=== PATIENT | female | born 1965 | race Caucasian/White ===

== ENCOUNTER 2023-06-22 20:20 | Outpatient (REF) | payer BC, SELFPAY ==
[2023-06-27 15:08] LABS: Age Gdln ACOG Testing Note (.); HPV Aptima Negative (Negative); IGP, Aptima HPV, rfx 16/18,45 Note (.)
== END 2023-06-22 20:21 | disposition home or self-care (01) ==
LOC: LAB 20:20
PROVIDERS: PCP Internal Medicine; Visit Provider Obstetrics & Gynecology
DX: Z12.4 Encounter for screening for malignant neoplasm of cervix (principal)
CPT/HCPCS: 87624; G0145

== ENCOUNTER 2023-07-12 06:39 | Outpatient (OUT) | payer BC, SELFPAY ==
--- NOTE | 2023-07-12 06:41 | MM_ITS ---
Patient: ROWAN ALARCON Exam Date: 07/12/2023 : 1965 Gender:F Ordering : DR Raffaele Carter . Admission #: [id number] Family : DR Pa Brantley D.O. Order #: [id number] CLICK HERE TO VIEW EXAM RADIOLOGY REPORT PROCEDURE: MM TOMOSYNTHESIS SCREENING BI COMPARISON: MG MAMM SCREEN 3D LOWELL CAD, 12/29/2020. MG MAMM SCREEN 3D LOWELL CAD, 07/11/2022. INDICATIONS: Screening Calculator Name NCI Breast Cancer Risk Assessment Tool 5 Year Breast Cancer Risk 1.20% Lifetime Breast Cancer Risk 6.00% Personal Breast Cancer No Personal Ovarian Cancer No Treatments None Family Cancers Mother with colon cancer at age ~65. LOCATION: [facility] BREAST COMPOSITION: Heterogeneously dense,which may obscure small masses. FINDINGS: DIAGNOSTIC CATEGORY 2--BENIGN FINDING. NO CHANGE FROM COMPARISON. Scattered benign-appearing nodules are present. Scattered benign-appearing calcifications are present. Scattered benign-appearing lymph nodes are present. RIGHT BREAST: No significant suspicious finding. LEFT BREAST: No significant suspicious finding. RECOMMENDATIONS: ROUTINE MAMMOGRAM AND CLINICAL EVALUATION IN 12 MONTHS. PLEASE NOTE: A NORMAL MAMMOGRAM DOES NOT EXCLUDE THE POSSIBILITY OF BREAST CANCER. A CLINICALLY SUSPICIOUS PALPABLE LUMP SHOULD BE BIOPSIED. Dictated by: Pavan Harry MD on 07/12/2023 at 10:39 Approved by: Pavan Harry MD on 07/12/2023 at 10:41
== END 2023-07-12 06:40 | disposition home or self-care (01) ==
LOC: MAMMO 06:39
PROVIDERS: PCP Internal Medicine; Visit Provider Obstetrics & Gynecology
DX: Z12.31 Encounter for screening mammogram for malignant neoplasm of breast (principal); Z80.0 Family history of malignant neoplasm of digestive organs
CPT/HCPCS: 77063; 77067

== ENCOUNTER 2023-09-21 07:13 | Outpatient (OUT) | payer BC, SELFPAY ==
[2023-09-21 08:01] LABS: Estimated GFR (African America >60 (>=60); Estimated GFR (Non-African Ame >60 (>=60)
== END 2023-09-21 07:14 | disposition home or self-care (01) ==
LOC: LAB 07:13
PROVIDERS: Visit Provider Obstetrics & Gynecology
DX: Z78.0 Asymptomatic menopausal state (principal)
CPT/HCPCS: 82565; 84520

== ENCOUNTER 2024-03-21 10:27 | Outpatient (OUT) | payer BC, SELFPAY ==
--- NOTE | 2024-03-21 | XR_ITS ---
The [address] [address] Patient Name: ROWAN ALARCON MRN: [id number] date: 1965 Sex: F Assigned Patient Location: Current Patient Location: Accession/Order Number: [id number] Exam Date: 03/21/2024 10:40 Report Date: 03/22/2024 07:49 At the request of: ALEX DOLAN Procedure: XR foot LT min 3V PROCEDURE: XR foot LT min 3V, XR ankle LT min 3V COMPARISON: 01/17/2018 HISTORY: LEFT FOOT PAIN FINDINGS: BONES:No acute fracture or dislocation of the ankle or foot. Mild enthesopathic spurring of the calcaneus at the Achilles insertion. Minimal degenerative change SOFT TISSUES:Negative. No visible soft tissue swelling. EFFUSION:None visible. OTHER: Negative. XR/XR foot LT min 3V IMPRESSION: No acute abnormality of the foot or ankle Electronically authenticated by: DEVON RUANO Date: 03/22/2024 07:49
--- NOTE | 2024-03-21 | XR_ITS ---
The [address] [address] Patient Name: ROWAN ALARCON MRN: [id number] date: 1965 Sex: F Assigned Patient Location: Current Patient Location: Accession/Order Number: [id number] Exam Date: 03/21/2024 10:44 Report Date: 03/22/2024 07:49 At the request of: ALEX DOLAN Procedure: XR ankle LT min 3V PROCEDURE: XR foot LT min 3V, XR ankle LT min 3V COMPARISON: 01/17/2018 HISTORY: LEFT FOOT PAIN FINDINGS: BONES:No acute fracture or dislocation of the ankle or foot. Mild enthesopathic spurring of the calcaneus at the Achilles insertion. Minimal degenerative change SOFT TISSUES:Negative. No visible soft tissue swelling. EFFUSION:None visible. OTHER: Negative. XR/XR ankle LT min 3V IMPRESSION: No acute abnormality of the foot or ankle Electronically authenticated by: DEVON RUANO Date: 03/22/2024 07:49
== END 2024-03-21 10:28 | disposition home or self-care (01) ==
LOC: EC 10:27
PROVIDERS: Visit Provider Physician Assistant
DX: M79.672 Pain in left foot (principal); M25.572 Pain in left ankle and joints of left foot
CPT/HCPCS: 73610; 73630

== ENCOUNTER 2024-04-03 10:20 | Outpatient (RCR) | payer BC, SELFPAY | END 2024-05-02 17:12 | disposition home or self-care (01) | LOC: PT 10:20 | PROVIDERS: Visit Provider Physician Assistant | DX: S93.492D Sprain of other ligament of left ankle, subsequent encounter (principal) | CPT/HCPCS: 97010; 97014; 97035; 97110; 97112; 97140; 97162 ==

== ENCOUNTER 2024-06-18 06:41 | Outpatient (OUT) | payer BC, SELFPAY ==
--- OUTSIDE RECORDS SUMMARY | 2024-06-18 06:44 | XMS_ITS | CCD ---
Author Organization [facility] Care Team Providers Care Heel Former Name Role Phone PHYSICIAN, DEFAULT Unavailable Unavailable PHYSICIAN, DEFAULT Unavailable Unavailable FERCHO, PA Primary Care Physician Fercho, Pa Unavailable FERCHO, DR BOYD Attending Unavailable BALL, DR BOYD Consulting Unavailable FERCHO, DR BOYD Primary Care Unavailable FERCHO, DR BOYD Admitting Unavailable BINDU, DR DEVON John Consulting Unavailable FERCHO, DR BOYD Admitting Unavailable FERCHO, DR BOYD Attending Unavailable FERCHO, DR BOYD Primary Care Unavailable INOCENTE, JORDEN Admitting Unavailable INOCENTE, JORDEN Attending Unavailable INOCENTE, JORDEN Consulting Unavailable FERCHO, DR BOYD Primary Care Unavailable BALL, DR BOYD Primary Care Unavailable INOCENTE, JORDEN Attending Unavailable INOCENTE, JORDEN Consulting Unavailable INOCENTE, JORDEN Admitting Unavailable FERCHO, DR BOYD Attending Unavailable BALL, DR BOYD Consulting Unavailable FERCHO, DR BOYD Primary Care Unavailable FERCHO, DR BOYD Admitting Unavailable Allergies Allergy Classification Reported Allergen(s) Allergy Type Date of Onset Reaction(s) Facility (5 sources) Sulfamethoxazole / Trimethoprim; Translations: [sulfamethoxazole-tr imethoprim] Drug Allergy 5 Eruption of skin (disorder) General Surgery [place] (1 source) Sulfamethoxazole / Trimethoprim Drug Allergy 5 [facility] Medications Current Medications Medication Drug Class(es) Dates Sig (Normalized) Sig (Original) Acidophilus Probiotic Blend (1 source) Start: 01-05-2022 take 1 capsule by mouth once daily Acidophilus Probiotic Blend 1 cap(s), Oral, Daily, Refill(s) 0 Start Date: 01/05/22 Status: Ordered ALPRAZolam 0.25 mg oral tablet (5 sources) Benzodiazepine Start: 01-04-2023 take 1 tablet by mouth twice daily as needed ALPRAZolam 0.25 MG 1 tablet Orally Twice a day as needed for 30 days Dec, Active Start: 01-05-2022 take 1 tablet by danilo th every six hours as needed for anxiety alprazolam 0.25 mg Tab 0.25 mg = 1 tab(s), Oral, q6hr, PRN as needed for anxiety, Refills(s) 0 Start Date: 01/05/22 Status: Ordered take 1 tablet by danilo th every twelve hours ALPRAZolam 0.25 MG 1 tablet Orally Twice a day Active aspirin 81 mg oral tablet (1 source) Platelet Aggregation Inhibitor, Nonsteroidal Anti-inflammatory Drug Start: 01-05-2022 take 1 tablet by mouth once daily aspirin 81 mg Oral EC Tab 81 mg = 1 tab(s), Oral, Daily, Refills(s) 0 Start Date: 01/05/22 Status: Ordered estrogens, conjugated (residential) 0.625 mg/ml vaginal cream (4 sources) Estrogen Premarin 0.625 MG/GM as directed Vaginal Active predniSONE 20 mg oral tablet (1 source) Start: 07-26-2023 predniSONE 20 MG 1 tablet Orally tid w/ food x 3 days then bid w/ food x 3 days then qd w/ food x 3 days for 9 days Jul, Active Completed/Discontinued Medications Medication Drug Class(es) Dates Sig (Normalized) Sig (Original) amoxicillin 875 mg oral tablet (4 sources) Penicillin-class Antibacterial Start: 11-26-2022 take 1 tablet by mouth every twelve hours Amoxicillin 875 MG 1 tablet Orally Twice a day for 10 days Nov, Not-Taking Problems Active Problems Problem Classification Problem Date Documented Date Episodic/Chronic Abdominal pain (10 sources) Acute pain in female pelvis; Translations: [Pelvic and perineal pain] Episodic Allergic reactions (1 source) Allergic contact dermatitis due to plants, except food Episodic Anxiety disorders (7 sources) Generalized anxiety disorder; Translations: [Generalized anxiety disorder] 01-05-2022 Chronic Cardiac dysrhythmias (6 sources) Paroxysmal supraventricular tachycardia; Translations: [Supraventricular tachycardia] 01-05-2022 Chronic Cardiac dysrhythmias (5 sources) Palpitations; Translations: [Palpitations] Episodic Coagulation and hemorrhagic disorders (3 sources) Primary thrombocytopenia; Translations: [Primary thrombocytopenia, unspecified] Onset: 5 Chronic Conditions associated with dizziness or vertigo (2 sources) Benign paroxysmal positional vertigo; Translations: [Benign paroxysmal positional vertigo] Onset: 8 Episodic Genitourinary symptoms and ill-defined conditions (6 sources) Polyuria; Translations: [Polyuria] Episodic Headache; including migraine (1 source) Migraine with aura; Translations: [Migraine with aura, not intractable, without status migrainosus] Onset: 8 Chronic Joint disorders and dislocations; trauma-related (5 sources) Derangement of left knee; Translations: [Unspecified internal derangement of left knee] Chronic Nonspecific chest pain (6 sources) Chest pain; Translations: [Other chest pain] Onset: 5 Episodic Other and unspecified benign neoplasm (2 sources) History of polyp of colon; Translations: [Personal history of colonic polyps] Onset: 2 Episodic Other and unspecified benign neoplasm (5 sources) Polyp of colon; Translations: [Polyp of colon] Episodic Other bone disease and musculoskeletal deformities (5 sources) Osteopenia; Translations: [Other specified disorders of bone density and structure, other site] 01-05-2022 Episodic Other bone disease and musculoskeletal deformities (1 source) Other specified disorders of bone density and structure, other site Episodic Other bone disease and musculoskeletal deformities (1 source) Disorder of bone; Translations: [Other specified disorders of bone density and structure, other site] Episodic Other female genital disorders (1 source) Prolapse and hernia of ovary and fallopian tube; Translations: [Prolapse and hernia of ovary and fallopian tube] Episodic Other nutritional; endocrine; and metabolic disorders (1 source) Body mass index 25-29 - overweight 01-05-2022 Episodic Other screening for suspected conditions (not mental disorders or infectious disease) (11 sources) Electrocardiogram abnormal; Translations: [Abnormal electrocardiogram [ECG] [EKG]] Onset: 8 Episodic Other upper respiratory disease (5 sources) Chronic laryngitis; Translations: [Chronic laryngitis] Chronic Other upper respiratory infections (3 sources) Streptococcal pharyngitis; Translations: [Acute maxillary sinusitis] Episodic Residual codes; unclassified (1 source) Family history of malignant neoplasm of digestive organ; Translations: [Family history of malignant neoplasm of digestive organs] Onset: 2 Episodic Residual codes; unclassified (1 source) Family history of cancer of colon 01-05-2022 Episodic Residual codes; unclassified (1 source) Asymptomatic menopausal state Episodic Residual codes; unclassified (1 source) Postprocedural state finding; Translations: [Other specified postprocedural states] Episodic Spondylosis; intervertebral disc disorders; other back problems (2 sources) Lumbar spondylosis; Translations: [Lumbosacral spondylosis without myelopathy] 01-05-2022 Chronic Unclassified (1 source) History of clinical finding in subject 01-05-2022 Unclassified (2 sources) CONTACT W/AND (SUSP) EXPOS COVID-19; Translations: [CONTACT W/AND (SUSP) EXPOS COVID-19] Onset: 2 Unclassified (1 source) Exposure to acute respiratory syndrome coronavirus 2; Translations: [Contact with and (suspected) exposure to COVID-19] Viral infection (6 sources) Disease caused by 2019-nCoV; Translations: [COVID-19] Onset: 2 Past or Other Problems Problem Classification Problem Date Documented Date Episodic/Chronic Bacterial infection; unspecified site (1 source) Bacterial infectious disease; Translations: [Bacterial infection, unspecified, in conditions classified elsewhere and of unspecified site] Onset: 09-19-2017 Episodic Headache; including migraine (1 source) Headache; Translations: [Headache, unspecified] Onset: 08-01-2018 Episodic Other [employer] infection and poliomyelitis (1 source) Epidemic vertigo; Translations: [Vestibular neuronitis] Onset: 07-30-2018 Episodic Other connective tissue disease (1 source) Lateral epicondylitis; Translations: [Lateral epicondylitis of elbow] Onset: 12-19-2013 Episodic Other non-traumatic joint disorders (1 source) Arthralgia of the ankle and/or foot; Translations: [Pain in joint, ankle and foot] Onset: 01-17-2017 Episodic Other nutritional; endocrine; and metabolic disorders (1 source) Overweight; Translations: [Overweight] Onset: 08-28-2017 Episodic Residual codes; unclassified (1 source) Family history of malignant neoplasm of digestive organs; Translations: [FAM HX MALIG NEOPLASM DIGESTIV ORGN] Onset: 07-14-2022 Episodic Residual codes; unclassified (1 source) Insomnia; Translations: [Insomnia, unspecified] Onset: 11-03-2014 Episodic Unclassified (1 source) CONTACT W/AND (SUSP) EXPOS COVID-19; Translations: [CONTACT W/AND (SUSP) EXPOS COVID-19] Onset: 05-22-2022 Results Test Name Value Interpretation Reference Range Facility CBC AUTO DIFFon 01-10-2023 BASO # 0.1 103/ul Normal 0.0-0.1 [facility] Comment on above: Performed By: #### C BC #### [facility] [address] [address] [address] Harjit Blair Basophils/100 WBC (Bld) 1.0 % Normal 0.2-2.0 [facility] Comment on above: Performed By: #### C BC #### [facility] [address] [place] [address] Dr. Harjit Blair EO # 0.3 103/ul Normal 0.0-0.7 [facility] Comment on above: Performed By: #### C BC #### [facility] [address] [address] [address] Harjit Blair Eosinophils/100 WBC (Bld) 5.0 % Normal 0.9-7.0 [facility] Comment on above: Performed By: #### C BC #### [facility] [address] [place] [address] Dr. Harjit Blair Erythrocyte distribution width (RBC) [Ratio] 12.6 % Normal 11.0-15.0 [facility] Comment on above: Performed By: #### C BC #### [facility] [address] [place] [address] Dr. Harjit Blair Hematocrit (Bld) [Volume fraction] 38.5 % Normal 36.0-48.0 [facility] Comment on above: Performed By: #### C BC #### [facility] [address] [place] [address] Dr. Harjit Blair Hemoglobin (Bld) [Mass/Vol] 12.9 g/dL Normal 12.0-16.0 [facility] Comment on above: Performed By: #### C BC #### [facility] [address] [place] [address] Dr. Harjit Blair IG # 0.02 10e3/ul Normal 0.00-0.03 [facility] Comment on above: Performed By: #### C BC #### [facility] [address] [place] [address] Dr. Harjit Blair IG % 0.3 % Normal 0.0-0.5 [facility] Comment on above: Performed By: #### C BC #### [facility] [address] [place] [address] Dr. Harjit Blair LYMPH # 2.2 103/ul Normal 1.2-3.8 [facility] Comment on above: Performed By: #### C BC #### [facility] [address] [place] [address] Dr. Harjit Blair Lymphocytes/100 WBC (Bld) 36.4 % Normal 20.5-60.0 [facility] Comment on above: Performed By: #### C BC #### [facility] [address] [place] [address] Dr. Harjit Blair MANUAL DIFF REQ NO Normal [facility] Comment on above: Performed By: #### C BC #### [facility] [address] [place] [address] Dr. Harjit Blair MCH (RBC) [Entitic mass] 28.7 pg Normal 26.7-34.0 [facility] Comment on above: Performed By: #### C BC #### [facility] [address] [place] [address] Dr. Harjit Blair MCHC (RBC) [Mass/Vol] 33.5 g/dL Normal 29.9-35.2 [facility] Comment on above: Performed By: #### C BC #### [facility] [address] [place] [address] Dr. Harjit Blair MCV (RBC) [Entitic vol] 85.7 fL Normal 81.0-99.0 [facility] Comment on above: Performed By: #### C BC #### [facility] [address] [place] [address] Dr. Harjit Blair MONO # 0.5 103/ul Normal 0.3-0.8 [facility] Comment on above: Performed By: #### C BC #### [facility] [address] [place] [address] Dr. Harjit Blair Monocytes/100 WBC (Bld) 7.9 % Normal 1.7-12.0 [facility] Comment on above: Performed By: #### C BC #### [facility] [address] [place] [address] Dr. Harjit Blair NEUT # 3.0 103/ul Normal 1.4-6.5 [facility] Comment on above: Performed By: #### C BC #### [facility] [address] [place] [address] Dr. Harjit Blair Neutrophils/100 WBC (Bld) 49.4 % Normal 43.0-75.0 [facility] Comment on above: Performed By: #### C BC #### [facility] [address] [place] [address] Dr. Harjit Blair Platelet mean volume (Bld) [Entitic vol] 10.2 fL Normal 9.5-13.5 [facility] Comment on above: Performed By: #### C BC #### [facility] [address] [place] [address] Dr. Harjit Blair PLT 220 103/ul Normal 150-450 [facility] Comment on above: Performed By: #### C BC #### [facility] [address] [place] [address] Dr. Harjit Blair RBC 4.49 106/ul Normal 4.20-5.40 [facility] Comment on above: Performed By: #### C BC #### [facility] [address] [place] [address] Dr. Harjit Blair WBC 6.0 103/ul Normal 4.0-11.0 [facility] Comment on above: Performed By: #### C BC #### [facility] [address] [place] [address] Dr. Harjit Blair GLYCOHEMOGLOBIN A1Con 2022 ADA RECOMMENDATION SEE BELOW Normal [facility] Comment on above: Result Comment: ADA RECOMMENDED LIMIT 4.0 - 6.0 ADA THERAPEUTIC TARGET < 7.0 ACTION SUGGESTED > 7.0 Performed By: #### A 1C #### [facility] [address] [address] [address] Harjit Blair Glucose [Mass/Vol] 108 mg/dL Normal [facility] Comment on above: Performed By: #### A 1C #### [facility] [address] [address] [address] Harjit Blair HbA1c (Bld) [Mass fraction] 5.4 % Normal 4.5-6.2 [facility] Comment on above: Performed By: #### A 1C #### [facility] [address] [place] [address] Dr. Harjit Blair LIPID PROFILEon 01-10-2023 CHOL-HDL RATIO NORM SEE BELOW Normal [facility] Comment on above: Result Comment: 3.3 - 4.4 LOW RISK 4.4 - 7.1 AVERAGE RISK 7.1 - 11.0 MODERATE RISK >11.0 HIGH RISK Performed By: #### C MP, TSH, LIPID #### [facility] [address] [place] [address] Dr. Harjit Blair Cholesterol [Mass/Vol] 224 mg/dL Critically high <=200 [facility] Comment on above: Performed By: #### C MP, TSH, LIPID #### [facility] [address] [place] [address] Dr. Harjit Blair Cholesterol in HDL [Mass/Vol] 66 mg/dL Critically high 40-60 [facility] Comment on above: Performed By: #### C MP, TSH, LIPID #### [facility] [address] [place] [address] Dr. Harjit Blair Cholesterol in LDL [Mass/Vol] 137.0 mg/dL Normal [facility] Comment on above: Performed By: #### C MP, TSH, LIPID #### [facility] [address] [place] [address] Dr. Harjit Blair Cholesterol.total/Ch olesterol in HDL [Mass ratio] 3.4 {ratio} Normal [facility] Comment on above: Performed By: #### C MP, TSH, LIPID #### [facility] [address] [address] [address] Harjit Blair HDL NORMAL > or = 60 mg/dl - LO W CARDIOVASCULAR RISK <40 mg/dl - HIGH CARDIOVASCULAR RISK Normal [facility] Comment on above: Performed By: #### C MP, TSH, LIPID #### [facility] [address] [address] [address] Harjit Blair LDL CALC NORMAL SEE BELOW Normal [facility] Comment on above: Result Comment: <100 mg/dl OPTIMAL 100 - 129 mg/dl NEAR OR ABOVE OPTIMAL 130 - 159 mg/dl BORDERLINE HIGH 160 - 189 mg/dl HIGH >190 mg/dl VERY HIGH Performed By: #### C MP, TSH, LIPID #### [facility] [address] [address] [address] Harjit Blair Triglyceride [Mass/Vol] 105 mg/dL Normal <=150 [facility] Comment on above: Performed By: #### C MP, TSH, LIPID #### [facility] [address] [address] [address] Harjit Blair VLDL CALC 21.0 mg/dL Normal [facility] Comment on above: Performed By: #### C MP, TSH, LIPID #### [facility] [address] [address] [address] Harjit Blair PROF 14(COMP METB)on 023 Albumin [Mass/Vol] 3.9 g/dL Normal 3.4-5.0 [facility] Comment on above: Performed By: #### C MP, TSH, LIPID #### [facility] [address] [address] [address] Harjit Blair Albumin/Globulin [Mass ratio] 1.1 {ratio} Normal [facility] Comment on above: Performed By: #### C MP, TSH, LIPID #### [facility] [address] [address] [address] Harjit Blair ALP [Catalytic activity/Vol] 99 U/L Normal 46-116 [facility] Comment on above: Performed By: #### C MP, TSH, LIPID #### [facility] [address] [address] [address] Harjit Blair ALT [Catalytic activity/Vol] 21 U/L Normal 14-59 [facility] Comment on above: Performed By: #### C MP, TSH, LIPID #### [facility] [address] [address] [address] Harjit Blair Anion gap [Moles/Vol] 13.2 mmol/L Normal [facility] Comment on above: Performed By: #### C MP, TSH, LIPID #### [facility] [address] [address] [address] Harjit Blair AST [Catalytic activity/Vol] 24 U/L Normal 15-37 [facility] Comment on above: Performed By: #### C MP, TSH, LIPID #### [facility] [address] [place] [address] Dr. Harjit Blair Bilirubin [Mass/Vol] 0.6 mg/dL Normal 0.2-1.0 [facility] Comment on above: Performed By: #### C MP, TSH, LIPID #### [facility] [address] [place] [address] Dr. Harjit Blair Calcium [Mass/Vol] 9.1 mg/dL Normal 8.5-10.1 [facility] Comment on above: Performed By: #### C MP, TSH, LIPID #### [facility] [address] [place] [address] Dr. Harjit Blair Chloride [Moles/Vol] 104 mmol/L Normal 98-107 [facility] Comment on above: Performed By: #### C MP, TSH, LIPID #### [facility] [address] [place] [address] Dr. Harjit Blair CO2 [Moles/Vol] 28.8 mmol/L Normal 21.0-32.0 [facility] Comment on above: Performed By: #### C MP, TSH, LIPID #### [facility] [address] [place] [address] Dr. Harjit Blair Creatinine [Mass/Vol] 0.87 mg/dL Normal 0.55-1.02 [facility] Comment on above: Performed By: #### C MP, TSH, LIPID #### [facility] [address] [address] [address] Harjit Blair EGFR-AF AFGHAN >60 Normal >=60 [facility] Comment on above: Performed By: #### C MP, TSH, LIPID #### [facility] [address] [address] [address] Harjit Blair EGFR-NON AF AFGHAN >60 Normal >=60 [facility] Comment on above: Performed By: #### C MP, TSH, LIPID #### [facility] [address] [address] [address] Harjit Blair Globulin (S) [Mass/Vol] 3.5 g/dL Normal [facility] Comment on above: Performed By: #### C MP, TSH, LIPID #### [facility] [address] [address] [address] Harjit Blair Glucose [Mass/Vol] 87 mg/dL Normal 74-106 [facility] Comment on above: Performed By: #### C MP, TSH, LIPID #### [facility] [address] [address] [address] Harjit Blair Potassium [Moles/Vol] 4.0 mmol/L Normal 3.5-5.1 [facility] Comment on above: Performed By: #### C MP, TSH, LIPID #### [facility] [address] [address] [address] Harjit Blair Protein [Mass/Vol] 7.4 g/dL Normal 6.4-8.2 [facility] Comment on above: Performed By: #### C MP, TSH, LIPID #### [facility] [address] [address] [address] Harjit Blair Sodium [Moles/Vol] 142 mmol/L Normal 136-145 [facility] Comment on above: Performed By: #### C MP, TSH, LIPID #### [facility] [address] [address] [address] Harjit Blair Urea nitrogen [Mass/Vol] 19.0 mg/dL Critically high 7.0-18.0 [facility] Comment on above: Performed By: #### C MP, TSH, LIPID #### [facility] [address] [place], [place] [address] Dr. Harjit Blair Urea nitrogen/Creatinine [Mass ratio] 21.8 mg/mg Normal [facility] Comment on above: Performed By: #### C MP, TSH, LIPID #### [facility] [address] [place], [place] [address] Dr. Harjit Blair TSHon 01-10-2023 TSH 1.558 uIU/mL Normal 0.358-3.740 [facility] Comment on above: Performed By: #### C MP, TSH, LIPID #### [facility] [address] [place], [place] [address] Dr. Harjit Blair MG MAMM SCREEN 3D LOWELL CADon 07-11-2022 MG MAMM SCREEN 3D LOWELL CAD Patient: RENETTA GREENE Exam Date: 07/11/2022 : 1965 Gender:F Ordering : DR PA BRANTLEY D.O. Admission #: [id number] Family : Order #: [id number] CLICK HERE TO VIEW EXAM RADIOLOGY REPORT PROCEDURE: MAMMOGRAM SCREENING 3D BILATERAL CAD COMPARISON: MG MAMM SCREEN LOWELL W CAD, 08/02/2018. MG MAMM SCREEN 3D LOWELL CAD, 12/29/2020. INDICATIONS: Screening mammography Calculator Name NCI Breast Cancer Risk Assessment Tool 5 Year Breast Cancer Risk 1.10% Lifetime Breast Cancer Risk 6.20% Personal Breast Cancer No Personal Ovarian Cancer No Treatments None Family Cancers Mother with colon cancer at age 65. LOCATION: [facility] BREAST COMPOSITION: Heterogeneously dense,which may obscure small masses. FINDINGS: DIAGNOSTIC CATEGORY 2--BENIGN FINDING. NO CHANGE FROM COMPARISON. Scattered benign-appearing calcifications are present. Scattered benign-appearing lymph nodes are present. RIGHT BREAST: No significant suspicious finding. LEFT BREAST: No significant suspicious finding. RECOMMENDATIONS: ROUTINE MAMMOGRAM AND CLINICAL EVALUATION IN 12 MONTHS. PLEASE NOTE: A NORMAL MAMMOGRAM DOES NOT EXCLUDE THE POSSIBILITY OF BREAST CANCER. A CLINICALLY SUSPICIOUS PALPABLE LUMP SHOULD BE BIOPSIED. Dictated by: Devon Harry MD on 07/11/2022 at 12:50 Approved by: Devon Harry MD on 07/11/2022 at 12:52 Normal [facility] ASYMPTOMATIC COVID-19 ANTIGE Non 05-22-2022 EUA Statement SEE BELOW Normal [facility] Comment on above: Result Comment: This test has not been FDA cleared or approved, but has been authorized by the FDA under an Emergency Use Authorization (EUA) for use by authorized laboratories certified under CLIA that meet the requirements to perform moderate or high complexity testing. This test has been authorized only for the detection of proteins from SARS-CoV-2, not for any other viruses or pathogens. The emergency use of this test is authorized for the duration of the declaration that circumstances exist justifying the authorization of emergency use of in vitro diagnostic tests for detection and/or diagnosis of Covid-19 under section 564(b)(1) of the Act, 21 U.S.C. 360bbb-3(b)(1), unless the declaration is terminated or authorization is revoked sooner. Performed By: #### C VDAGA #### [facility] [address] [place] [address] Dr. Harjit Blair SARS-CoV-2 (COVID-19) RNA MAIKEL+probe Ql (Unsp spec) Positive Critically abnormal NEGATIVE [facility] Comment on above: Result Comment: SARS -CoV-2 antigen present; does not rule out coinfection with other pathogens. Performed By: #### C VDAGA #### [facility] [facility] [address] [place] [address] Dr. Harjit Blair [facility]on SARS-CoV-2 (COVID-19) RNA MAIKEL+probe Ql (Unsp spec) Detected Critically abnormal NOT DETECTED [facility] Comment on above: Result Comment: This test is not yet approved or cleared by the [place] FDA. When there are no FDA-approved or cleared tests available, and other criteria are met, FDA can make tests available under an emergency access mechanism called an Emergency Use Authorization (EUA). The EUA for this test is supported by the Chucking And Sawing Machine Operator of Health and Human Service's declaration that circumstances exist to justify the emergency use of in vitro diagnostics for the detection and/or diagnosis of the virus that causes COVID-19. This EUA will remain in effect for the duration of the COVID-19 declaration justifying emergency of IVDs, unless it is terminated or revoked by the FDA (after which the test may no longer be used). Performed By: #### C [facility] #### [facility] [address] [place] [address] Dr. Harjit Blair Outside Colonoscopyon 2021 Outside Colonoscopy [id number] .00CD:127 [facility] Reminderson 01-20-2022 Reminders - From: Rose Carlos LPN To: N - Clinical; Sent: 01/20/2022 14:34:58 EDT Show up: 12/19/2026 07:00:00 EST Subject: colonoscopy recall Due Date/Time: 01/19/2027 07:00:00 EDT Reminder/Recall Patient is due for colonoscopy 01/19/2027 due to history of tubular adenoma. Normal [facility] Lab Reportson 01-18-2022 Lab Reports [id number]. 00CD:127 [facility] Consent for Procedure/Surger yon 01-06-2022 Consent for Procedure/Surgery [id number] .[id number]:127 [facility] Facesheeton 01-06-2022 Facesheet [id number] .00CD:127 [facility] Ambulatory Visit Summaryon 0 01-05-2022 Ambulatory Visit Summary RENETTA GREENE :1965 Visit Date:01/05/2022 Ambulatory Visit Instructions Your Care Team Attending Physician - NAILA ANTONIO, Harpal Pozo Primary Care Physician - PA BRANTLEY DO Referring Physician - PA BRANTLEY DO This Is Your Medications List alprazolam (alprazolam 0.25 mg Tab) aspirin (aspirin 81 mg Oral EC Tab) lactobacillus acidophilus (Acidophilus Probiotic Blend) Procedures Performed Colonoscopy (03/11/2015), Abdominal hysterectomy, Arthroscopy of knee, Left salpingo-oophorectomy , Meniscal repair. Discharge Vitals Heart Rate (Peripheral) 68 Respiratory Rate 16 Blood Pressure 112/70 Height 170.18 cm Height 170.2 cm Weight 72.7 kg Weight 72.7 kg BMI 25.1 Medications What How Much When Instructions Unchanged alprazolam (alprazolam 0.25 mg Tab) 1 Tablets By Mouth Every 6 hours as needed for as needed for anxiety Unchanged aspirin (aspirin 81 mg Oral EC Tab) 1 Tablets By Mouth Every day Unchanged lactobacillus acidophilus (Acidophilus Probiotic Blend) 1 Capsules By Mouth Every day Allergies sulfamethoxazole-trim ethoprim (Rash) Problems Ongoing - Any problem that you are currently receiving treatment for. BMI 25.0-25.9,adult LOU (generalized anxiety disorder) History of abnormal electrocardiogram Lumbar spondylosis Osteopenia PSVT (paroxysmal supraventricular tachycardia) Normal [facility] Historical Records Officeon 01-04-2022 Historical Records Office [id number] .00CD:127 [facility] Physician Referralon 022 Physician Referral [id number] .00CD:127 [facility] CNOVon 03-26-2021 CNOV Office Visit (LOORRM ) RENETTA GREENE ([id number]) 1965 F Date Time Provider Department 03/26/21 11:00 AM RUPESH RODRIGUEZ During your visit today, we recorded the following information about you: Rupesh Rodriguez MD 03/26/2021 10:48 AM Signed This document has been created with the use of voice recognition technology. It may contain inaccuracies: misspellings, inaccurate syntax or word sense that escaped review. HISTORY: Renetta is a 55 year old female. She is here following up for left knee arthroscopy with a date of surgery of 01/27. She states she is doing well. HISTORY OF PRESENT ILLNESS: PAIN EVALUATION No data found in the last 1 encounters. The patient's past medical history, surgical history, social history, family history, medications and allergies were reviewed with the patient today and are available in the chart for further review. EXAMINATION: Examination of the knee demonstrates the portals are well healed. No effusion. Active full extension, flexion to 125. No Patellofemoral crepitation/Good patellar tracking. Stable to varus and valgus stresses. Stable anterior posterior drawer Calf is soft and nontender. Hip exam is negative Intact sensation to light touch distally RADIOGRAPHS: XR none today. IMPRESSION: Encounter Diagnosis ICD-10-CM 1. S/P left knee arthroscopy Z98.890 Procedures PLAN: F/u prn. Continue home exercise program. I have personally performed face to face diagnostic evaluation on this patient. I have examined the patient and reviewed radiographic studies and agree with plan as outlined above. Patient doing very well with resolution of her pain. She will progress her activities and will follow up for any problems Rupesh Rodriguez MD March 26, 2021 10:48 AM Referring Provider: RUPESH RODRIGUEZ [[id number]] Allergies As of Date: 03/26/2021 Noted Allergy Reaction SULFAMETHOXAZOLE-TRIM ETHOPRIM 01/19/2021 4 - Hives 5 - Intolerance 9 - Itching 2 - Rash Date Reviewed: 03/26/2021 Reviewed by: Kelsey Bender RN - Fully Assessed Reason for Visit: Post Op [174] Primary Visit Diagnosis:S/P left knee arthroscopy [Z98.890] Prescriptions as of 03/26/2021 Sig: ALPRAZOLAM 0.25 MG TABLET Take 0.25 mg by mouth three t* Problem List As Of Date 03/26/2021 Noted Resolved Dizziness [R42] 02/02/2018 Nausea [R11.0] 02/02/2018 01/27/2021 History of migraine [Z86.69] 02/02/2018 Acute medial meniscus tear of left knee [S83.24*01/19/2021 PONV (postoperative nausea and vomiting) [R11.2*01/27/2021 Encounter Status:Closed by RUPESH R[facility]IGUEZ on 03[facility]ORJASKARAN) RENETTA GREENE ([id number]) 1965 F Date Time Provider Department 02/23/21 QUERUPESH During your visit today, we recorded the following information about you: [facility] Service Spec 02/23/2021 4:07 PM Signed Patient called asking when she is supposed to return to work? Please call the patient back at [phone]. Jermaine Min PA-C 02/24/2021 2:10 PM Signed Spoke to the patient. She feels ready to go back to work and that was the original plan going back 03/01/21. She'll let us know if she has any problems with that. Jermaine Min PA-C Allergies As of Date: 02/23/2021 Noted Allergy Reaction SULFAMETHOXAZOLE-TRIM ETHOPRIM 01/19/2021 4 - Hives 5 - Intolerance 9 - Itching 2 - Rash Date Reviewed: 02/09/2021 Reviewed by: Jermaine Min PA-C - Fully Assessed Reason for Visit: Patient Question [6337] Prescriptions as of 02/23/2021 Sig: ALPRAZOLAM 0.25 MG TABLET Take 0.25 mg by mouth three t* Problem List As Of Date 02/23/2021 Noted Resolved Dizziness [R42] 02/02/2018 Nausea [R11.0] 02/02/2018 01/27/2021 History of migraine [Z86.69] 02/02/2018 Acute medial meniscus tear of left knee [S83.24*01/19/2021 PONV (postoperative nausea and vomiting) [R11.2*01/27/2021 Encounter Status:Closed by JERMAINE MIN on 02/24/21 Normal [facility] CNOVon 02-09-2021 CNOV Office Visit (LOORRM ) JCRENETTA Asiya ([id number]) 1965 F Date Time Provider Department 02/09/21 11:30 AM JERMAINE MIN TRACY During your visit today, we recorded the following information about you: Jermaine Min PA-C 02/09/2021 12:11 PM Signed This document has been created with the use of voice recognition technology. It may contain inaccuracies: misspellings, inaccurate syntax or word sense that escaped review. HISTORY: Renetta is a 55 year old female. She is here following up for left knee arthroscopy with medial meniscectomy with a date of surgery of 01/27/2021. She states she still having some significant pain and soreness especially when performing her physical therapy exercises. The knee is not giving out on her and she does not feel instability. She denies significant swelling at this time, but is still using a compressive wrap and ice after therapy sessions because it will swell up on her. Denies drainage from the incisions or redness around the incisions. Denies fevers and chills. HISTORY OF PRESENT ILLNESS: PAIN EVALUATION 02/09/2021 1155 Pain Level: 5 Pain Location: Knee-Left Description: Burning Duration Amount of Time: 2 Duration Units: Weeks Frequency: Intermittent Intervention: Reposition;Relaxation ;Cold;Exercise;Positi oning;Medication The patient's past medical history, surgical history, social history, family history, medications and allergies were reviewed with the patient today and are available in the chart for further review. EXAMINATION: Examination of the knee demonstrates the incision is healing well. Mild effusion. Active 0 extension, flexion to 120. Mild patellofemoral crepitation/ patellar tracking needs improvement. Stable to varus and valgus stresses. Stable anterior posterior drawer Calf is soft and nontender. Hip exam is negative Intact sensation to light touch distally RADIOGRAPHS: None IMPRESSION: Encounter Diagnosis ICD-10-CM 1. S/P left knee arthroscopy Z98.890 Procedures PLAN: Patient presents 2 weeks after left knee arthroscopy with medial meniscectomy. The joint looks good upon visualization with the scope. We do not anticipate she will have long-term issues with this knee and the pain she is feeling now which is normal postoperative soreness. There are no signs of infection. Follow-up in 6 weeks Jermaine Min PA-C Referring Provider: RUPESH RODRIGUEZ [[id number]] Allergies As of Date: 02/09/2021 Noted Allergy Reaction SULFAMETHOXAZOLE-TRIM ETHOPRIM 01/19/2021 4 - Hives 5 - Intolerance 9 - Itching 2 - Rash Date Reviewed: 02/09/2021 Reviewed by: Jermaine Min PA-C - Fully Assessed Reason for Visit: Post Op [174] Primary Visit Diagnosis:S/P left knee arthroscopy [Z98.890] Prescriptions as of 02/09/2021 Sig: ALPRAZOLAM 0.25 MG TABLET Take 0.25 mg by mouth three t* Problem List As Of Date 02/09/2021 Noted Resolved Dizziness [R42] 02/02/2018 Nausea [R11.0] 02/02/2018 01/27/2021 History of migraine [Z86.69] 02/02/2018 Acute medial meniscus tear of left knee [S83.24*01/19/2021 PONV (postoperative nausea and vomiting) [R11.2*01/27/2021 Disposition: Return in about 6 weeks (around 03/23/2021). Follow-up and Disposition History Recorded Encounter Status:Closed by JERMAINE MIN on 02/09/21 [facility] ANES POSTPROC EVALon 021 ANES POSTPROC EVAL HNO ID: [id number] Author: Coty Arzate Service: Anesthesiology Author Type: Physician Type: Anesthesia Postprocedure Evaluation Filed: 01/27/2021 2:37 PM Note Text: POST ANESTHESIA EVALUATION NOTE : 1965 Procedure Summary Date: 01/27/21 Room / Location: [place] [address] / [facility] Anesthesia Start: 1232 Anesthesia Stop: 1335 Procedure: ARTHROSCOPY KNEE MENISCECTOMY MEDIAL OR LATERAL (Left Knee) Diagnosis: Acute medial meniscus tear of left knee, initial encounter Surgeons: Rupesh Rodriguez Responsible Provider: Coty Arzate Anesthesia Type: general ASA Status: 2 Anesthesia Type: general Last vitals Vitals Value Taken Time BP 113/59 01/27/21 1430 Temp 37.0 01/27/21 1436 HR SpO2 73 01/27/21 1430 Resp 16 01/27/21 1430 SpO2 100 % 01/27/21 1430 Post Anesthesia Patient Status Patient Evaluation: PACU. PACU/ICU Patient Condition: stable. Anticipated Disposition: phase 2 then home. Neurological Status: aware and responsive. Pulmonary Status: breathing comfortably on room air Airway Control: returned to baseline unsupported. Cardiovascular Status: stable. Pain Management: clinically adequate - multimodal analgesia pain management approach Postoperative Hydration: acceptable. Intraoperative Events: no significant anesthesia events Recommendation: continue current plan of care. No complications documented. SIGNATURE: Coty Arzate MD PATIENT NAME: Renetta Greene DATE: January 27, 2021 TIME: 2:36 PM CSN: [id number] Normal [facility] ANES PRE-OPon 01-27-2021 ANES PRE-OP HNO ID: [id number] Author: Coty Arzate Service: Anesthesiology Author Type: Physician Type: Anesthesia Preprocedure Evaluation Filed: 01/27/2021 11:34 AM Note Text: ANESTHESIOLOGY DAY OF SURGERY NOTE : 1965 Procedure(s) (LRB): ARTHROSCOPY KNEE MENISCECTOMY MEDIAL OR LATERAL (Left) Surgeon(s): Rupesh Rodriguez Estimated body mass index is 25.06 kg/m? as calculated from the following: Height as of 01/22/21: 170.2 cm (5' 7 ). Weight as of 01/22/21: 72.6 kg (160 lb). Most recent hematocrit and potassium results: No results found for this basename: HCT,HEMATOCRIT,K,POTA SSIUM Relevant Problems ANESTHESIA (+) PONV (postoperative nausea and vomiting) NEURO-PSYCH (+) History of migraine I - PHYSICAL EVALUATION AIRWAY Patient intubated: No. Mallampati: II. TM distance: >3 FB. Neck ROM: full ROM without neurological symptoms. Mouth opening: adequate. Short neck: no. Thick neck: no DENTAL Dental findings: teeth intact. Additional exam findings: no II - ANESTHESIA PLAN ASA Score: 2 Anesthetic Plan: general Airway type: LMA Anesthetic plan additional comments: TIVA. NPO Status: adequate Monitoring plan: Standard ASA. Postoperative analgesic plan: parenteral or oral opioids and multimodal analgesia. Anesthetic Risks, Benefits, Alternatives, Personnel Discussed. Consent obtained from: patient.Patient / Surrogate agrees to blood products: yes DNR status not reviewed with patient and/or family prior to surgery. Significant changes in the patient condition since the History and Physical, not otherwise documented in primary service progress note: no. Potential Anesthesia issues that may suggest increased risk of complications or contraindication to planned procedure: none. Vitals Value Taken Time BP 144/74 01/27/21 1130 Pulse 86 01/27/21 1130 Resp 16 01/27/21 1130 Temp 37.2 ?C (98.9 ?F) 01/27/21 1130 SpO2 100 % 01/27/21 1130 No current facility-administered medications on file as of 01/27/2021. Outpatient Medications as of 01/27/2021 Medication Sig - ALPRAZolam (XANAX) 0.25 mg tablet Take 0.25 mg by mouth three times daily as needed (takes half pill). I have interviewed and examined the patient. I have reviewed the medical record and/or the pre-anesthesia evaluation, pertinent labs, and test results. This contains updated information obtained within 48 hours of Surgery/Procedure. SIGNATURE: Coty Arzate MD PATIENT NAME: Renetta Greene DATE: January 27, 2021 TIME: 11:33 AM CSN: [id number] Normal [facility] BRIEF OP NOTon 01-27-2021 BRIEF OP NOT HNO ID: [id number] Author: Rupesh Rodriguez Service: Orthopaedic Surgery Author Type: Physician Type: Brief Op Note Filed: 01/27/2021 1:21 PM Note Text: BRIEF OPERATIVE / PROCEDURE NOTE LOG ID: [id number] SURGERY/PROCEDURE DATE: 01/27/2021 INCISION/PROCEDURE START TIME: 12:52 PM INCISION CLOSE/PROCEDURE END TIME: 1:17 PM SURGEON(S)/PROCEDURAL IST(S) AND DEAN OF EDUCATION(S): Surgeon(s) and Role: * Rupesh Rodriguez - Primary Physician X Ray Technician: Jermaine Min SURGERY/PROCEDURE(S): Left DAK/ MM ANESTHESIA: Choice - Anesthesia Consult. LMA FINDINGS: MM Tear TOURNIQUET: None ESTIMATED BLOOD LOSS: 5 mls SPECIMENS: None COMPLICATIONS: None IMPLANTS: None PRE-OP/PRE-PROCEDURE DIAGNOSIS: MM Tear POST-OP/POST-PROCEDUR E DIAGNOSIS: Same as Preop SIGNATURE: Rupesh Rodriguez MD PATIENT NAME: Renetta E Jc DATE: January 27, 2021 TIME: 1:14 PM Normal [facility] OPERATIVE NOon 01-27-2021 OPERATIVE NO HNO ID: [id number] Author: Rupesh Rodriguez Service: Orthopaedic Surgery Author Type: Physician Type: Operative Report Filed: 01/28/2021 8:22 AM Note Text: [facility] - Operative Report [address] [place] [address] [place] RENETTA GREENE : 1965 AGE: 55. SEX: F PATIENT TYPE: A HOSP [facility]: [facility] LOCATION: [id number] ATTENDING PHYSICIAN: Rupesh Rodriguez M.D. CSN NUMBER: [id number] DATE OF SURGERY/PROCEDURE: 01/27/2021 INCISION/PROCEDURE START TIME: 1252. INCISION CLOSE/PROCEDURE END TIME: 1317. PREOPERATIVE DIAGNOSIS: Left knee medial meniscus tear. POSTOPERATIVE DIAGNOSIS: Left knee medial meniscus tear. SURGEON: Rupesh Rodriguez M.D. DEAN OF EDUCATION: Jermaine Min PA-C. No qualified resident available. Mr. Min assisted in positioning the patient, positioned the knee for exposure, and closure of the surgical incisions. SURGERY/PROCEDURE: Left knee arthroscopy, partial medial meniscectomy. I performed the procedure. ANESTHESIA: LMA. FINDINGS: Oblique tear of the posterior horn of the medial meniscus with a large displaced flap displaced posteriorly. INDICATIONS FOR PROCEDURE: The patient is a 55-year-old woman who injured her left knee with a twisting mechanism with subsequent medial pain and mechanical symptoms. She had an MRI, which demonstrated a medial meniscus tear with a displaced flap. Treatment options were discussed with the patient both operative and conservative. After discussion, she wished to proceed with surgical treatment. We discussed left knee arthroscopy, partial medial meniscectomy. We went over the procedure with her in detail, options, risks, expected outcome, and postoperative rehab. We discussed risks of infection, stiffness, preoperative medical problems, neurovascular injury, DVT, and persistent pain. We discussed surgical treatment in light of the COVID-19 pandemic. The patient had a good understanding. She wished to proceed. TOURNIQUET TIME: None. ESTIMATED BLOOD LOSS: 5 mL. DRAINS: None. SPECIMENS: None. COMPLICATIONS: None apparent. IMPLANTS: None. DESCRIPTION OF PROCEDURE: Procedure and operative site were confirmed with the patient. The operative site was marked. All questions answered. Preoperative sign- in was performed. The patient was brought into the operating room and placed on the operating room table. She had an LMA anesthetic administered by Anesthesiologist. She had a left upper leg well-padded tourniquet placed, which not inflated. Her knees were examined. She has symmetric motion and no ligamentous laxity. Her left leg was prepped with DuraPrep and draped in usual sterile fashion. Appropriate precautions were followed. We did a time-out. The portal sites were infiltrated with 0.25% Marcaine with epinephrine. The superomedial portal was made and the inflow cannula placed. Subsequently, the anteromedial and anterolateral portals were made. The scope was placed into the knee. There was some reactive synovitis. We did a synovectomy and was allowed visualization of the knee. The patellofemoral joint was intact. The scope was placed into the medial compartment. The medial articular surfaces were intact. There was some fibrillation along the notch, otherwise intact. The medial meniscus demonstrated an oblique tear, which was displaced and flipped posteriorly. We placed our attention towards debridement and using a combination of biting instruments and the motorized shaver, the tear was debrided to a stable margin. The scope was placed into the intercondylar notch. The anterior cruciate ligament was intact. The scope was now placed into the lateral compartment with the knee in a figure-of-4 position. Lateral meniscus was intact. The lateral femoral condyle was intact. There was some slight irregularity of the lateral tibial plateau, otherwise intact. We now examined the gutters, which were unremarkable. The knee was irrigated and the arthroscopic instruments were removed. Mr. Chidi closed the portals with 3-0 Monocryl subcuticular stitches followed by Steri-Strips, a sterile dressing, and standard post arthroscopy dressing. She was in a process of being awakened from her general anesthetic. No apparent complications. She tolerated the procedure well. She received prophylactic antibiotics. Arthroscopic photographs were taken to document the procedure. Postoperative sign-out was performed. No specimens were sent. Sponge and needle counts were correct. There was no family to discuss the procedure with postoperatively. Rupesh Rodriguez M.D. :[id number] /[id number] Normal [facility] PreOp/PreProc COVIDon 2020 SARS-CoV-2 (COVID-19) RNA MAIKEL+probe Ql (Unsp spec) UPPER RESPIRATORY TRACT SWAB Normal [facility] Comment on above: Performed By: #### P OCOVD ####[place] [id number] [place], [place] [phone] SARS-CoV-2 (COVID-19) RNA MAIKEL+probe Ql (Unsp spec) Negative Normal Negative for COVID19 (SARS CoV2) by PCR. [facility] Comment on above: Result Comment: This test was developed and its performance characteristics determined by [facility] [place]. This test has been authorized by FDA under an Emergency Use Authorization (EUA). This test has been validated in accordance with the FDA's Guidance Document Policy for Diagnostics Testing in Laboratories Certified to Perform High Complexity Testing under CLIA prior to Emergency use Authorization for Coronavirus Disease 2019 during the Public Health Emergency issued on December 07, 2019. Test performed by [facility], [facility] [place], [address], [place] [address]. Performed By: #### P OCOVD ####[place] [id number] [place], [place] [phone] HISTORY PHYSICALon HISTORY PHYSICAL HNO ID: [id number] Author: MARY Mckay Pa-C Service: ? Author Type: Physician X Ray Technician Type: HANDP Filed: 01/22/2021 8:07 AM Note Text: PREANESTHESIA CONSULT CLINIC TELEHEALTH VISIT Patient has been identified by name and date of : Yes Reason for contact: PACC visit Accompanied by: Self Scheduled Surgery: left knee arthroscopy with meniscectomy by Dr. Rodriguez on 01/27/2021 at [facility] Subjective CHIEF COMPLAINT: Patient presents with: Pre-Op Exam HPI: This is a 55 year old female with c/o constant aching left knee pain, rated at a 3/10. She had an injury to the knee 01/14/2021, she fell while running and heard a snap in the knee. She has received x-rays and MRI. ACTIVE PROBLEM LIST Dizziness Nausea History of Migraine Acute Medial Meniscus Tear of Left Knee No past medical history on file. PAST SURGICAL HISTORY Procedure Laterality Date - COLONOSCOPY - KNEE SURGERY HX Right arthroscopy - KNEE SURGERY HX Left arthroscopy - OOPHORECTOMY PARTIAL OR TOTAL - TUBAL LIGATION - VAGINAL HYSTERECTOMY FAMILY HISTORY Problem Relation Age of Onset - Cancer Mother - Heart disease Father Social History Tobacco Use - Smoking status: Never Smoker - Smokeless tobacco: Never Used Substance Use Topics - Alcohol use: Yes - Drug use: Never ALLERGIES Allergen Reactions - Sulfamethoxazole-Tr* Hives, Intolerance, Itching, Rash MEDICATIONS: Current Outpatient Medications Medication Sig - ALPRAZolam (XANAX) 0.25 mg tablet Take 0.25 mg by mouth three times daily as needed (takes half pill). No current facility-administered medications for this visit. REVIEW OF SYSTEMS: Pain Assessment: General: No weight loss, malaise or fevers. Neuro: No history of TIA's, stroke, GAS PLANT TECHNICIAN tumor, impaired sensorium, hemiplegia, paraplegia or quadraplegia. No neurological symptoms or problems. + for migraines Respiratory: No history of current cough or dyspnea, or pneumonia in the past 6 weeks. No history of respiratory/pulmonary symptoms or problems. Cardiovascular: Negative for chest pain, orthopnea, dizziness, lightheadedness or syncope. No history AL, or heart valve disorders. Negative for heart murmur. Negative for palpitations or arrhythmia. Negative for h/o DVT/PE. Negative for LE edema GI: Denies nausea, vomiting, diarrhea, constipation, or abdominal pain. : No history of UTI in past 6 weeks. No history of renal failure. Not currently on or requiring dialysis. Negative for dysuria, hematuria, urgency, or frequency. 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 : N/A, No LMP recorded. Patient has had a hysterectomy. Endocrine: No history of diabetes. Has not taken steroids within the past 30 days. No history of endocrinological symptoms or problems. Hematology: No history of bleeding or clotting disorder. Pt is not taking anti-coagulation or platelet medications. No history of hematological symptoms or problems. Oncology: No history of CA metastasis, chemo within 30 days, or radiotherapy within 90 days. Has not lost 10% of body wt in 6 months. No history of oncological symptoms or problems. + for BCC removal Psych: Anxiety- Rx Musculoskeletal: See HPI Skin: Negative for lesions, rash and itching. Objective PHYSICAL EXAM: Pulse 90[patient reported[ Ht 5' 7 [patient reported[ (1.70m) Wt 160 lb (72.6kg) BMI 25.05 kg/(m2). VIDEO EXAM: (if completed, performed via video enabled technology) GENERAL: alert and appropriate, in no distress, well-hydrated, well nourished and happy, smiling, interactive SKIN: no rash noted HEAD: normocephalic, no abnormality or lesion noted EYES: no injection and visual acuity is grossly normal OROPHARYNX: moist mucus membranes NECK: full ROM, no cervical LNs noted RESPIRATORY: breathing non-labored CHEST: equal chest rise with normal respiratory effort HEART: self palpitated radial pulse, regular when counted aloud by patient ABDOMEN: soft and non-tender per patient NEUROLOGIC: no obvious deficit Diagnostic tests reviewed for today's visit: PENDING Impression/Recommenda tions ASSESSMENT: Assessment: There is no known pertinent medical condition which may affect angelica-operative course METS: Do moderate work around the house such as vacuuming, sweeping floors, or carrying in groceries (3.50 METs) Climb a flight of stairs or walk up a hill (5.50 METs) Patient denies any chest pain or undue shortness of breath with the above physical activity. ASA Class: 2 ANESTHESIA FINDINGS: Intubation History: No history of difficult intubation Significant Anesthesia Considerations: Postop nausea/vomiting Airway Exam: General: Normal appearance Mallampati Score is CLASS II ULBT: Class I - Lower incisors can bite the upper lip above the faisal line Neck: Normal appearance and function, Distance from hyoid to mentum during neck extension is at glenda (more content not included)... Normal [facility] Divya 01-20-2021 CNPN Telephone ([facility] RENETTA GREENE ([id number]) 1965 F Date Time Provider Department 01/20/21 RUPESH RODRIGUEZ During your visit today, we recorded the following information about you: Luis Felipe Ayala 01/20/2021 12:07 PM Signed Left voice message notifying patient she is scheduled for COVID pre-op testing on 01/25/21 at [facility]. Notified her that she will be receiving a call from [facility] to schedule virtual PACC appointment. Provided Daly's direct number in surgery scheduling and asked that she call back to let us know she received this message, and in case she has any questions. Elif Romero Med Sec 01/20/2021 2:17 PM Signed Patient returned call confirming her covid testing appointment for her surgery with Dr. Rodriguez. Allergies As of Date: 01/20/2021 Noted Allergy Reaction SULFAMETHOXAZOLE-TRIM ETHOPRIM 01/19/2021 4 - Hives 5 - Intolerance 9 - Itching 2 - Rash Date Reviewed: 01/19/2021 Reviewed by: Fredi Florence - Fully Assessed Reason for Visit: Surgical Followup [104] Prescriptions as of 01/20/2021 Sig: ALPRAZOLAM 0.25 MG TABLET Take 0.25 mg by mouth three t* Problem List As Of Date 01/20/2021 Noted Resolved Dizziness [R42] 02/02/2018 Nausea [R11.0] 02/02/2018 History of migraine [Z86.69] 02/02/2018 Acute medial meniscus tear of left knee [S83.24*01/19/2021 Encounter Status:Closed by LUIS FELIPE AYALA on 01/20/21 [facility] CNOVon 01-19-2021 CNOV Office Visit ([facility] ) RENETTA GREENE ([id number]) 1965 F Date Time Provider Department 01/19/21 2:30 PM RUPESH RODRIGUEZ During your visit today, we recorded the following information about you: Rupesh Rodriguez MD 01/19/2021 3:19 PM Signed This document has been created with the use of voice recognition technology. It may contain inaccuracies: misspellings, inaccurate syntax or word sense that escaped review. The patient is seen at the request of self for evaluation and an opinion regarding treatment. A copy of this report will remain in the shared medical record CHIEF COMPLAINT: Renetta Greene is a 55 year old female, senior tech manufacturing engineering at [employer], who presents today for new evaluation of left knee pain for 5 days. HISTORY OF PRESENT ILLNESS: PAIN EVALUATION 01/19/2021 1420 Pain Level: 3 Pain Location: Knee-Left Description: Sharp;Aching Duration Amount of Time: 5 Duration Units: Days Frequency: Intermittent Intervention: Reposition;Relaxation ;Positioning HISTORY: Renetta Greene has complains of left knee pain after stepping down and twisting her knee. She states she noted a snap with acute onset of pain. Has subsequently noted pain and sensation of instability. She does have prior history of knee arthroscopy for shaving . No hip or neurologic complaints. She has been taking ibuprofen and using ice. She did have an MRI of her knee which demonstrates a medial meniscus tear with a displaced meniscal fragment No other musculoskeletal complaints ROS: REVIEW OF SYSTEMS: Constitutional: patient denies any recent fever or significant change in weight Cardiovascular: patient denies any chest pain at rest Respiratory: patient denies any shortness of breath or cough Gastrointestinal: patient denies any current abdominal discomfort Integumentary: patient denies any recent skin changes Musculoskeletal: as noted in the HPI Neurologic: as noted in the HPI Endocrine: patient denies a current diagnosis of diabetes Hematologic/Lymphatic : patient denies any easily bleeding, any recent infection and denies any recent observable lymph node enlargement Psychologic: Occasional anxiety issues SOCIAL HISTORY: Tobacco Use: Never FAMILY HISTORY: No family history on file. ALLERGIES: ALLERGIES Allergen Reactions - Sulfamethoxazole-Tr* Hives, Intolerance, Itching, Rash PAST MEDICAL HISTORY: No past medical history on file. SOCIAL HISTORY: Tobacco Use: Never EXAMINATION: GENERAL: Appears healthy, well-nourished, no deformities. ORIENTATION: Alert and oriented to person place and time HABITUS: Normal GAIT: Normal, the patient did not have trouble getting onto the exam table. left knee exam: Trace effusion Neutral alignment Active full extension, flexion 120. Good patellar tracking/no patella femoral crepitation Positive pain with palpating medial compartment, positive pain with palpating lateral compartment. Stable to varus and valgus stresses. Fozia is negative Negative anterior/posterior drawer. Pain with McMurrays Palpable dorsalis pedis pulse Calf soft and nontender. Hip exam negative Intact sensation to light touch distally. RADIOGRAPHS: XR Obtained today and personally reviewed by myself demonstrating patellofemoral arthritis MRI: Personally reviewed with a complex medial meniscus tear with a large displaced fragment IMPRESSION: Encounter Diagnosis ICD-10-CM 1. Acute medial meniscus tear of left knee, initial encounter S83.242A CONSULT TO(TCI)PRE-OP CLEAR SURGICAL REQUEST - ELECTIVE (05/2020) PRE-PROCEDURE AND PRE-OPERATIVE COVID Procedures Plan: Patient with left knee medial meniscus tear. Has some underlying patellofemoral osteoarthritis. She feels pain and instability. Discussed treatment options. She is concerned regarding the sensation of instability. I discussed surgical treatment with arthroscopy and partial medial meniscectomy. Went over the procedure with her in detail, options, risk, expected outcome and postoperative rehab. Discussed risk of infection, stiffness, perioperative medical problems, neurovascular injury, DVT and persistent pain. We discussed surgical treatment in light of the COVID-19 pandemic. Patient had a good understanding she wished to proceed with surgical treatment. The patient was offered a surgery/procedure at a [facility]. The surgeon/proceduralist and patient have discussed in detail the risk of exposure to and/or potential harm posed by the COVID-19 virus with having a surgery/procedure at this time versus the risk of delaying the surgery/procedure. It is not possible to know either the risk of delaying the surgery or procedure or chance of getting an infection with perfect accuracy, but a joint decision was made between the patient and the surgeon/proceduralist to proceed at [facility] (more content not included)... Normal [facility] CNPNon 01-19-2021 CNPN Telephone ([facility]) RENETTA GREENE ([id number]) 1965 F Date Time Provider Department 01/19/21 RUPESH RODRIGUEZ During your visit today, we recorded the following information about you: Kim Mat Juan Pss 01/19/2021 3:42 PM Signed Patient was scheduled for outpatient Physical Therapy at [facility] on Monday 01/29 @ 1pm Sanam Finney 01/28/2021 8:22 AM Signed Patient calling regarding below. Patient states [facility] has not received order for PT and she has phone #[phone] ext [phone] but does not have the fax number to fax PT orders to. Please advise. Fredi Florence MA 01/28/2021 9:04 AM Signed I called [facility] and got their fax number. Faxed PT order to them and received confirmation. Allergies As of Date: 01/19/2021 Noted Allergy Reaction SULFAMETHOXAZOLE-TRIM ETHOPRIM 01/19/2021 4 - Hives 5 - Intolerance 9 - Itching 2 - Rash Date Reviewed: 01/19/2021 Reviewed by: Fredi Florence - Fully Assessed Reason for Visit: Appointment [186] Prescriptions as of 01/19/2021 Sig: ALPRAZOLAM 0.25 MG TABLET Take 0.25 mg by mouth three t* Problem List As Of Date 01/19/2021 Noted Resolved Dizziness [R42] 02/02/2018 Nausea [R11.0] 02/02/2018 History of migraine [Z86.69] 02/02/2018 Acute medial meniscus tear of left knee [S83.24*01/19/2021 Encounter Status:Closed by KIM MICHELLE [facility] ([id number]) 1965 F Date Time Provider Department 01/19/21 RUPESH RODRIGUEZ During your visit today, we recorded the following information about you: Dariana Erwin Meneses 01/19/2021 3:06 PM Signed Patient left provider office and did not get a doctors note for being off for from now until her surgery next week and would like the slip to be faxed to her employer ATTN: Miah Sanchez Patient can be reached for confirmation at: [phone] Okay to leave a message on phone. Please review Fredi Florence MA 01/19/2021 3:24 PM Signed Letter has been faxed to number provided below and fax confirmation was received. I called and advised patient. Allergies As of Date: 01/19/2021 Noted Allergy Reaction SULFAMETHOXAZOLE-TRIM ETHOPRIM 01/19/2021 4 - Hives 5 - Intolerance 9 - Itching 2 - Rash Date Reviewed: 01/19/2021 Reviewed by: Fredi Florence - Fully Assessed Reason for Visit: Letter [264] Cmt: Off Work Letter Prescriptions as of 01/19/2021 Sig: ALPRAZOLAM 0.25 MG TABLET Take 0.25 mg by mouth three t* Problem List As Of Date 01/19/2021 Noted Resolved Dizziness [R42] 02/02/2018 Nausea [R11.0] 02/02/2018 History of migraine [Z86.69] 02/02/2018 Acute medial meniscus tear of left knee [S83.24*01/19/2021 Encounter Status:Closed by FREDI FLORENCE MA on 01/19/21 Normal [facility] HOSPon 01-19-2021 HOSP Patient:Yokasta Greene MRN: Height:5' 7 [patient reported[(1.702 m) Weight:160 lb (72.576 kg) Outpatient Medications as of 01/27/21: ALPRAZolam (XANAX) 0.25 mg tablet Admission/Clinic Administered Medications as of 01/27/21: lidocaine 10 mg/mL (1 %) 1-2 mg injection (XYLOCAINE) lactated ringers iv infusion scopolamine 1 mg over 3 days 1 Patch (TRANSDERM-SCOP) scopolamine - REMOVE PATCH propofol injection (DIPRIVAN) fentaNYL 50 mcg/mL injection (SUBLIMAZE) midazolam (PF) injection (VERSED) dexAMETHasone sodium phosphate injection (DECADRON) Problem List: Dizziness [R42] History of migraine [Z86.69] Acute medial meniscus tear of left knee [S83.242A] PONV (postoperative nausea and vomiting) [R11.2, Z98.890] Allergies: Sulfamethoxazole-Trim ethoprim Date Verified: 01/27/21 Lab Values No results within the last 30 days for the following basenames: K,HCT Progress Notes (H[facility]EDA): Luis Felipe Ayala 01/20/2021 12:07 PM Signed Left voice message notifying patient she is scheduled for COVID pre-op testing on 01/25/21 at [facility]. Notified her that she will be receiving a call from [facility] to schedule virtual PACC appointment. Provided Daly's direct number in surgery scheduling and asked that she call back to let us know she received this message, and in case she has any questions. Elif Romero Med Sec 01/20/2021 2:17 PM Signed Patient returned call confirming her covid testing appointment for her surgery with Dr. Rodriguez. Progress Notes (JOLLY TEJEDA [facility]): Kim Martinez Pss 01/19/2021 3:42 PM Signed Patient was scheduled for outpatient Physical Therapy at [facility] on Monday 01/29 @ 1pm Normal [facility] XR KNEE 4V AP/PA BOTH+LAT/ME R LTon 01-19-2021 XR KNEE 4V AP/PA BOTH+LAT/SAPNA LT * * *Final Report* * * DATE OF EXAM: Jan 19 2021 2:20PM [facility] 5202 - XR KNEE 4V AP/PA BOTH+LAT/SAPNA LT / PROCEDURE REASON: Left knee pain, unspecified chronicity * * * * Physician Interpretation * * * * EXAMINATION: XR KNEE 4V AP/PA BOTH+LAT/SAPNA LT HISTORY: left knee pain/ stiffness./ Left knee pain, unspecified chronicity . TECHNIQUE: XR KNEE 4V AP/PA BOTH+LAT/SAPNA LT Laterality: LEFT Number of different views (projections): 4 M: XB_1 COMPARISON: Outside MRI dated 01/15/2021 RESULT: The osseous structures are intact without acute fracture or dislocation. Medial, lateral and patellofemoral joint compartments are maintained. No evidence of suprapatellar joint effusion. IMPRESSION: NORMAL STUDY. Conche Loader And Unloader: [facility] Transcribe Date/Time: Jan 19 2021 3:41P Dictated by : TANISHA LAZO MD This examination was interpreted and the report reviewed and electronically signed by: TANISHA LAZO MD on Jan 19 2021 3:42PM EST [id number] Normal [facility] OT-MRI KNEE LT WO CON IMPORT on 01-15-2021 OT-MRI KNEE LT WO CON IMPORT Images were obtained outside of [facility] [id number] Normal [facility] Vital Signs Date Time Vital Sign Value Performing Clinician Facility 07-26-2023 14:45-0400 Body height 170.18 cm [facility] Other [facility] Other 07-26-2023 14:45-0400 Body mass index (BMI) [Ratio] 25.71 kg/m2 [facility] Other 07-26-2023 14:45-0400 Body weight 74.48 kg [facility] Other [facility] Other 07-26-2023 14:45-0400 Diastolic blood pressure 71 mm[Hg] Pa Ball Other [facility] Other 07-26-2023 14:45-0400 Respiratory rate 12 /min Pa Ball Other [facility] Other 07-26-2023 14:45-0400 Systolic blood pressure 112 mm[Hg] Pa Ball Other [facility] Other 01-04-2023 16:00-0400 Body height 170.18 cm Pa Ball Other [facility] Other 01-04-2023 16:00-0400 Body mass index (BMI) [Ratio] 26.12 kg/m2 Pa Ball Other [facility] Other 01-04-2023 16:00-0400 Body weight 75.66 kg Pa Ball Other [facility] Other 01-04-2023 16:00-0400 Diastolic blood pressure 71 mm[Hg] Pa Ball Other [facility] Other 01-04-2023 16:00-0400 Respiratory rate 12 /min Pa Ball Other [facility] Other 01-04-2023 16:00-0400 Systolic blood pressure 113 mm[Hg] Pa Ball Other [facility] Other 01-05-2022 15:04-0400 Blood Pressure Location Harpal YOO [facility] 01-05-2022 15:04-0400 Diastolic blood pressure 70 mm[Hg] Harpal SANDOVALL [facility] 01-05-2022 15:04-0400 Heart rate 68 /min Harpal SANDOVALL [facility] 01-05-2022 15:04-0400 Respiratory rate 16 /min Harpal SANDOVALL [facility] 01-05-2022 15:04-0400 Systolic blood pressure 112 mm[Hg] Harpal SANDOVALL [facility] Encounters Encounter Date Encounter Type Care Provider Facility Start: 07-26-2023 End: 07-26-2023 ambulatory Pa Brantley Other [facility] Other Start: 07-26-2023 Office outpatient vi sit 15 minutes Pa Brantley [facility] Start: 02-22-[address] PA BRANTLEY Facili ty:[facility] Start: 01-14-2023 Encounter for genera l adult medical examination without abnormal findings DR PA BRANTLEY [facility] Start: 01-10-2023 End: 01-11-[address] PA BRANTLEY Facility:[facility] Start: 01-10-2023 End: 01-11-2023 Encounter for general adult medical examination without abnormal findings DR PA BRANTLEY Facility:[facility] Start: 01-04-2023 End: 01-04-2023 ambulatory Pa Brantley Other [facility] Other Start: 01-04-2023 Encounter for genera l adult medical examination without abnormal findings Pa Brantley [facility] Start: 01-04-2023 Periodic preventive med est patient 40-64yrs Pa Brantley [facility] Start: 11-25-2022 End: 11-25-2022 ambulatory Pa Brantley Other [facility] Other Start: 11-25-2022 Office outpatient vi sit 10 minutes Pa Brantley [facility] Start: 07-11-2022 End: 07-12-[address] PA BRANTLEY Facility:[facility] Start: 05-22-2022 End: 05-23-2022 ambulatory JORDEN BROWER Facility:[facility] Start: 05-16-2022 End: 05-16-2022 ambulatory PA BRANTLEY Facility:[facility] Start: 01-05-2022 End: 01-05-2022 Patient encounter procedure Harpal Pozo NILL General Surgery Nill/Said [facility] Start: 12-24-2021 Adult health examination Pa Brantley Other [facility] Other Start: 05-02-2017 End: 05-03-2017 Ambulatory DEFAULT PHYSICIAN Facility:[facility] Procedures Date Procedure Procedure Detail Performing Clinician Start: 08-28-2017 General examination of patient Pa Brantley Other Start: 03-11-2015 Colonoscopy Harpal MEJIA LL Arthroscopy of knee Harpal YOO Comment on above: bilateral Left salpingo-oophorectomy M ichael NILL Repair of meniscus Harpal MAC Screening for malign ant neoplasm of breast Pa Brantley Other Immunizations Immunization Date Immunization Notes Care Provider Berenice brasher 07-09-2021 influenza virus vaccine, unspecified formulation Harpal SANDOVALDavid General Surgery [facility] Payers Date Payer Category Payer [facility] [id number] 2019 Unknown [id number] 1965 Unknown [id number] .16.84 [id number] 1965 Unknown [id number] .16.84 [id number] 1965 Unknown [id number] 2.16.84 [id number] 1965 Unknown [id number] 2.16.84 [id number] 1965 Unknown [id number] 2.16.84 [id number] Unknown Social History Date Type Detail Facility Start: 01-05-2022 Tobacco smoking status Never s moked tobacco (finding) [facility] Tobacco smoking status Never Gener al Surgery [facility] Sex Assigned At Female Genera l Surgery [facility] Clinical Notes 01-19-2021 to 07-26-2023 Note Date & Type Note Facility 07-26-2023 Evaluation note Encounter Date Diagnosis Assessment Notes Jul, Allergic contact dermatitis due to plants, except food (ICD-10 - L23.7) Cool compresses, topical cortisone. Take Prednisone w/ food [facility] Other 03-29-2023 Evaluation note* Encounter Date Diagnosis Assessment Notes Treatment Notes Treatment Clinical Notes Dec, Wellness examination (ICD-10 - Z00.00) Healthy diet and exercise. Reviewed age-appropriate preventive testing recommended. Dec, LOU (generalized anxiety disorder) (ICD-10 - F41.1) Healthy diet, push fluids, exercise. Continue Xanax as needed. Dec, Palpitations (ICD-10 - R00.2) Healthy diet, avoid stimulants, Xanax as needed. Dec, Osteopenia of spine (ICD-10 - M85.88) Exercise, Ca and Vit D supplements. Check DEXA Dec, Menopause (ICD-10 - Z78.0) Dec, Screening mammogram for breast cancer (ICD-10 - Z12.31) Dec, Other Hydrate, avoid stimulants, Xanax as needed [facility] Other 02-17-2023 Evaluation note* Encounter Date Diagnosis Assessment Notes Treatment Notes Treatment Clinical Notes Nov, Pharyngitis due to Streptococcus species (ICD-10 - J02.0) Instructed to use Robitussin or Mucinex for cough, saline or Flonase NS for congestion, Tylenol for pain and fever. [facility] Other 03-30-2022 NoteChief Complaint consultation for colonoscopy HPI Staff 56 year old female presents on consultation from Dr. Brantley for colonoscopy. Last colonoscopy completed 2014 with tubular adenoma. Denies abdominal or rectal pain. No rectal bleeding or change in bowelhabits. Denies nausea or vomiting. No unexplained weight loss. Mother with history of colon cancer,age 75 at time of diagnosis. History of Present Illness 56 yo female with h/o PVST, personal h/o tubular adenoma removed 2014, referred for surveillance colonoscopy; denies change in bms or blood in stools, no abdominal complaints; abdominal operations significant for WILDER; no asa or NSAID use; no SBE prophylaxis; fmhx of colon ca in patient's mother andmaternal aunt, dx in their 70's, no fmhx of IBD. Review of Systems PHQ Score Initial Depression Screen Score: 0 ROS - Provider Constitutional: no fever, no sweats, no weight loss. Eyes: no glasses, no blurred vision, no visual loss. ENMT: no dentures, no hoarseness, no swallowing difficulties, no hearing loss, no ear infection(s),no nose bleeds. Cardiovascular: normal blood pressure, no chest pain, regular heartbeat, no heart murmur. Respiratory: no shortness of breath, no cough, no asthma, no wheezing. Gastrointestinal: no nausea, no vomiting, no diarrhea, no constipation, no blood in stool, no change in bowel habits, no abdominal pain, no hepatitis. Genitourinary: no kidney stones, no urine infection, no dysuria. Musculoskeletal: no pain, no weakness. Skin: no changing moles, no rash, no skin lumps. Neurologic: no seizures, no epilepsy, no headache. Psychiatric: no emotional or psychiatric problem. Heme/Lymph: no bleeding problems, no anemia, no blood clots, no transfusions. Allergy/Immunologic: no swollen lymph nodes/glands, no IV drug abuse. Other: Additional ROS info: Except as noted in the above Review of Systems and in the History of Present Illness, all other systems have been reviewed and are negative or noncontributory. Physical Exam Vitals & Measurements HR: 68(Peripheral) RR: 16 BP: 112/70 HT: 170.18 cm HT: 170.2 cm WT: 72.7 kg WT: 72.7 kg BMI: 25.1 HEENT: normal conjunctiva, sclera clear, no scleral icterus, EOM intact, PERRLA, oral mucosa moist without lesions. Neck: trachea midline, no mass, symmetric, no thyromegaly or nodules, no adenopathy Respiratory: lungs CTA, respirations non labored. Cardiovascular: regular rate and rhythm, no murmur, no pedal edema or varicosities. Gastrointestinal: soft, non distended, no tenderness, no masses, no palpable hernias, diastasis recti no, no hepatosplenomegaly; normal bs Lymphatic: no cervical adenopathy, Musculoskeletal: normal gait, digits and nails without infection, nodes, cyanosis, clubbing. Skin: no rashes, no lesions, no ulcers, no subcutaneous nodules, induration. Psychiatric/Neuro: oriented to time, place, person, judgement normal, affect appropriate for age, insight intact, no focal deficits. Tests: review of old records completed, Discussed surgical options, risks, and possible complications with patient. Assessment/Plan 1. Personal history of colonic polyps (Z86.010: Personal history of colonic polyps) plan surveillance colonoscopy under anesthesia, informed consent obtained. 2. Family history of colon cancer in mother (Z80.0: Family history of malignant neoplasm of digestive organs) see # 1 Follow-up No qualifying data available Problem List/Past Medical History Ongoing BMI 25.0-25.9,adult Family history of colon cancer in mother LOU (generalized anxiety disorder) History of abnormal electrocardiogram Lumbar spondylosis Osteopenia Personal history of colonic polyps PSVT (paroxysmal supraventricular tachycardia) Historical No qualifying data Procedure/Surgical History Colonoscopy (03/11/2015), Abdominal hysterectomy, Arthroscopy of knee, Left salpingo-oophorectomy, Meniscal repair. Medications Acidophilus Probiotic Blend, 1 cap(s), Oral, Daily alprazolam 0.25 mg Tab, 0.25 mg= 1 tab(s), Oral, q6hr, PRN aspirin 81 mg Oral EC Tab, 81 mg= 1 tab(s), Oral, Daily Allergies sulfamethoxazole-trimethoprim (Rash) Social History Alcohol Current, Wine, 1-2 times per week, 01/05/2022 Substance Abuse - Denies Substance Abuse, 01/05/2022 Tobacco Never (less than 100 in lifetime) Tobacco Use:. Never Smokeless Tobacco Use:., 01/05/2022 Family History CAD - Coronary artery disease: Father. Diabetes mellitus type 2: Mother. Heart disease: Father. Primary malignant neoplasm of colon: Mother. Immunizations Vaccine Date Status influenza virus vaccine, inactivated 07/2021 [facility] Comment on above:Result Comment: Electronically Signed By: Harpal YOO MD\Date and Time Signed: 01/05/22 16:51 [id number] NoteHNO ID: [id number] Author: Rupesh Rodriguez MD Service: ? Author Type: Physician Type: Progress Notes Filed: 03/26/2021 10:48 AM Note Text: This document has been created with the use of voice recognition technology. It may contain inaccuracies: misspellings, inaccurate syntax or word sense that escaped review. HISTORY: Renetta is a 55 year old female. She is here following up for left knee arthroscopy with a date of surgery of 01/27. She states she is doing well. HISTORY OF PRESENT ILLNESS: PAIN EVALUATION No data found in the last 1 encounters. The patient's past medical history, surgical history, social history, family history, medications and allergies were reviewed with the patient today and are available in the chart for further review. EXAMINATION: Examination of the knee demonstrates the portals are well healed. No effusion. Active full extension, flexion to 125. No Patellofemoral crepitation/Good patellar tracking. Stable to varus and valgus stresses. Stable anterior posterior drawer Calf is soft and nontender. Hip exam is negative Intact sensation to light touch distally RADIOGRAPHS: XR none today. IMPRESSION: Encounter Diagnosis ICD-10-CM 1. S/P left knee arthroscopy Z98.890 Procedures PLAN: F/u prn. Continue home exercise program. I have personally performed face to face diagnostic evaluation on this patient. I have examined the patient and reviewed radiographic studies and agree with plan as outlined above. Patient doing very well with resolution of her pain. She will progress her activities and will follow up for any problems Rupesh Rodriguez MD March 26, 2021 10:48 [facility]05-04-2021 NoteHNO ID: [id number] Author: Jermaine Min PA-C Service: ? Author Type: Physician X Ray Technician Type: Progress Notes Filed: 02/09/2021 12:11 PM Note Text: This document has been created with the use of voice recognition technology. It may contain inaccuracies: misspellings, inaccurate syntax or word sense that escaped review. HISTORY: Renetta is a 55 year old female. She is here following up for left knee arthroscopy with medial meniscectomy with a date of surgery of 01/27/2021. She states she still having some significant pain and soreness especially when performing her physical therapy exercises. The knee is not giving out on her and she does not feel instability. She denies significant swelling at this time, but is still using a compressive wrap and ice after therapy sessions because it will swell up on her. Denies drainage from the incisions or redness around the incisions. Denies fevers and chills. HISTORY OF PRESENT ILLNESS: PAIN EVALUATION 02/09/2021 1155 Pain Level: 5 Pain Location: Knee-Left Description: Burning Duration Amount of Time: 2 Duration Units: Weeks Frequency: Intermittent Intervention: Reposition;Relaxation;Cold;Exercise;Positioning;Medication The patient's past medical history, surgical history, social history, family history, medications and allergies were reviewed with the patient today and are available in the chart for further review. EXAMINATION: Examination of the knee demonstrates the incision is healing well. Mild effusion. Active 0 extension, flexion to 120. Mild patellofemoral crepitation/ patellar tracking needs improvement. Stable to varus and valgus stresses. Stable anterior posterior drawer Calf is soft and nontender. Hip exam is negative Intact sensation to light touch distally RADIOGRAPHS: None IMPRESSION: Encounter Diagnosis ICD-10-CM 1. S/P left knee arthroscopy Z98.890 Procedures PLAN: Patient presents 2 weeks after left knee arthroscopy with medial meniscectomy. The joint looks good upon visualization with the scope. We do not anticipate she will have long-term issues with this knee and the pain she is feeling now which is normal postoperative soreness. There are no signs of infection. Follow-up in 6 weeks [facility] NoteHNO ID: [id number] Author: Donna Borrego (Aa) Service: ? Author Type: High Man Type: Anesthesia Procedure Notes Filed: 01/27/2021 12:52 PM Note Text: ANESTHESIOLOGY PROCEDURE NOTE Airway General Information Procedure Start Time/Medication Administration: 01/27/2021 12:37 PM Patient location during procedure: OR Staffing Anesthesiologist: Coty Arzate Performed by: anesthesiologist Indications and Patient Condition Preoxygenated: yes Patient position: sniffing Difficult Mask: No Indications for airway management: anesthesia anesthesia circuit Method: asleep Final Airway Details Final airway type: supraglottic airway Number of attempts at approach: 1 Final Supraglottic Airway: IGEL Size 4 Seal Adequate: yes Airway not difficult SIGNATURE: FLOYD Sahu PATIENT NAME: Renetta Greene DATE: January 27, 2021 TIME: 12:51 PM [facility]: [id number] NoteHNO ID: [id number] Author: Priscilla Dobbins (Rt) Service: ? Author Type: Brickmason Supervisor Type: Progress Notes Filed: 01/19/2021 2:32 PM Note Text: Radiology Service Progress Note PATIENT NAME: Renetta Greene DATE OF SERVICE: January 19, 2021 TIME: 2:29 PM PATIENT IDENTITY VERIFICATION COMPLETED USING TWO (2) IDENTIFIERS: Name and Date of confirmed by patient verbally. FALL SCREENING: Has the patient had 2 falls in the last year or 1 fall with injury or currently using an Ambulatory Assistive Device (Walker, Cane, Wheelchair, Crutches, etc.)? No PATIENT GENDER DATA: Female. status: : No status: NO. PATIENT RELEVANT IMPLANT DATA REVIEWED: Yes RADIOLOGY DEPARTMENT: General X-ray: Exam(s) Completed: Lower Extremity X-Ray(s): Knee, AP / Lat / Tunne / Merchant Left and Wt. Bearing: PERIPHERAL IV DATA: Not applicable SIGNED BY: RT Hectro January 19, 2021 2:29 [facility]04-13-2021 NoteHNO ID: [id number] Author: Rupesh Rodriguez Service: ? Author Type: Physician Type: Progress Notes Filed: 01/19/2021 3:19 PM Note Text: This document has been created with the use of voice recognition technology. It may contain inaccuracies: misspellings, inaccurate syntax or word sense that escaped review. The patient is seen at the request of self for evaluation and an opinion regarding treatment. A copy of this report will remain in the shared medical record CHIEF COMPLAINT: Renetta Gerene is a 55 year old female, senior tech manufacturing engineering at [employer], who presents today for new evaluation of left knee pain for 5 days. HISTORY OF PRESENT ILLNESS: PAIN EVALUATION 01/19/2021 1420 Pain Level: 3 Pain Location: Knee-Left Description: Sharp;Aching Duration Amount of Time: 5 Duration Units: Days Frequency: Intermittent Intervention: Reposition;Relaxation;Positioning HISTORY: Renetta Greene has complains of left knee pain after stepping down and twisting her knee. She states she noted a snap with acute onset of pain. Has subsequently noted pain and sensation of instability. She does have prior history of knee arthroscopy for shaving . No hip or neurologic complaints. She has been taking ibuprofen and using ice. She did have an MRI of her knee which demonstrates a medial meniscus tear with a displaced meniscal fragment No other musculoskeletal complaints ROS: REVIEW OF SYSTEMS: Constitutional: patient denies any recent fever or significant change in weight Cardiovascular: patient denies any chest pain at rest Respiratory: patient denies any shortness of breath or cough Gastrointestinal: patient denies any current abdominal discomfort Integumentary: patient denies any recent skin changes Musculoskeletal: as noted in the HPI Neurologic: as noted in the HPI Endocrine: patient denies a current diagnosis of diabetes Hematologic/Lymphatic: patient denies any easily bleeding, any recent infection and denies any recent observable lymph node enlargement Psychologic: Occasional anxiety issues SOCIAL HISTORY: Tobacco Use: Never FAMILY HISTORY: No family history on file. ALLERGIES: ALLERGIES Allergen Reactions - Sulfamethoxazole-Tr* Hives, Intolerance, Itching, Rash PAST MEDICAL HISTORY: No past medical history on file. SOCIAL HISTORY: Tobacco Use: Never EXAMINATION: GENERAL: Appears healthy, well-nourished, no deformities. ORIENTATION: Alert and oriented to person place and time HABITUS: Normal GAIT: Normal, the patient did not have trouble getting onto the exam table. left knee exam: Trace effusion Neutral alignment Active full extension, flexion 120. Good patellar tracking/no patella femoral crepitation Positive pain with palpating medial compartment, positive pain with palpating lateral compartment. Stable to varus and valgus stresses. Fozia is negative Negative anterior/posterior drawer. Pain with McMurrays Palpable dorsalis pedis pulse Calf soft and nontender. Hip exam negative Intact sensation to light touch distally. RADIOGRAPHS: XR Obtained today and personally reviewed by myself demonstrating patellofemoral arthritis MRI: Personally reviewed with a complex medial meniscus tear with a large displaced fragment IMPRESSION: Encounter Diagnosis ICD-10-CM 1. Acute medial meniscus tear of left knee, initial encounter S83.242A CONSULT TO(TCI)PRE-OP CLEAR SURGICAL REQUEST - ELECTIVE (05/2020) PRE-PROCEDURE AND PRE-OPERATIVE COVID Procedures Plan: Patient with left knee medial meniscus tear. Has some underlying patellofemoral osteoarthritis. She feels pain and instability. Discussed treatment options. She is concerned regarding the sensation of instability. I discussed surgical treatment with arthroscopy and partial medial meniscectomy. Went over the procedure with her in detail, options, risk, expected outcome and postoperative rehab. Discussed risk of infection, stiffness, perioperative medical problems, neurovascular injury, DVT and persistent pain. We discussed surgical treatment in light of the COVID-19 pandemic. Patient had a good understanding she wished to proceed with surgical treatment. The patient was offered a surgery/procedure at a [facility] facility. The surgeon/proceduralist and patient have discussed in detail the risk of exposure to and/or potential harm posed by the COVID-19 virus with having a surgery/procedure at this time versus the risk of delaying the surgery/procedure. It is not possible to know either the risk of delaying the surgery or procedure or chance of getting an infection with perfect accuracy, but a joint decision was made between the patient and the surgeon/proceduralist to proceed at this time with the scheduled surgery/procedure as indicated on the consent form. Schedule for left knee arthroscopy partial medial meniscectomy Rupesh Rodriguez, [facility] No data available for this section General Surgery Harini History general Narrative - Reported* Type Description Date Medical History COVID Medical History Abdominal pain, acute, left lowe r quadrant Medical History Laryngitis, chronic Medical History Polyuria Medical History Palpitations Medical History Chest pain, mid sternal Medical History Abnormal EKG Medical History PSVT (paroxysmal supraventricula r tachycardia) Medical History Internal derangement of left kne e Medical History LOU (generalized anxiety disorde r) Medical History Osteopenia of spine Medical History Acute pain in female pelvis Medical History Colonic polyp Medical History PROLAPSE OF OVARY Surgical History COLONOSCOPY 2021 Surgical History ARTHROSCOPY, KNEE, DX, W/WO SYN OVIAL BX (SEP PROC) 2020 Surgical History REMOVAL OF OVARY/TUBE(S) 2014 Surgical History TOTAL HYSTERECTOMY 1994 Hospitalization History SEE SURGICAL HX [employer] Other History general Narrative - Reported* Type Description Date Medical History COVID Medical History Palpitations Medical History Abnormal EKG Medical History PSVT (paroxysmal supraventricula r tachycardia) Medical History Internal derangement of left kne e Medical History LOU (generalized anxiety disorde r) Medical History Osteopenia of spine Medical History Colonic polyp Medical History PROLAPSE OF OVARY Surgical History COLONOSCOPY 2021 Surgical History ARTHROSCOPY, KNEE, DX, W/WO SYN OVIAL BX (SEP PROC) 2020 Surgical History REMOVAL OF OVARY/TUBE(S) 2014 Surgical History TOTAL HYSTERECTOMY 1994 Hospitalization History SEE SURGICAL HX [employer] Other Hospital Discharge instructions No data available for this section General Surgery [place] Summary Purpose Family History No Family History Records FoundNo Family History Records FoundNo Family History Records FoundNo Family History Records Found Advance Directives No Advanced Directives Records FoundNo Advanced Directives Records FoundNo Advanced Directives Records FoundNo Advanced Directives Records Found Additional Source Comments INFORMATION SOURCE (unrecogn ized section and content) DATE CREATED AUTHOR 04/04/2018 [facility] DATE CREATED AUTHOR AUTHOR'S ORGANIZ ATION 11/12/2021 [facility] DATE CREATED AUTHOR AUTHOR'S ORGANIZ ATION 02/06/2022 [facility] DATE CREATED AUTHOR AUTHOR'S ORGANIZ ATION 02/20/2023 [facility] REASON FOR VISIT (unrecogniz ed section and content) sore throatsore throatWellne ssPoison Lila FOR RECORDS PERTAINING TO PATIENTS WHO ARE OR HAVE BEEN ENROLLED IN A CHEMICAL DEPENDENCY/SUBSTANCEABUSE PROGRAM, SOME INFORMATION MAY BE OMITTED. This clinical summary was aggregated from multiple sources. Caution should be exercised in using it in the provision of clinical care. This summary normalizes information from multiple sources, and as a consequence, information in this document may materially change the coding, format and clinical context of patient data. In addition, data may be omitted in some cases. CLINICAL DECISIONS SHOULD BE BASED ON THE PRIMARY CLINICAL RECORDS. [facility]. provides no warranty or guarantee of the accuracy or completeness of information in this document.
[2024-06-18 07:36] LABS: Basophils Absolute Auto 0.1 10^3/uL (0.0-0.1); Basophils Percent Auto 0.9 % (0.2-2.0); Eosinophils Absolute Auto 0.3 10^3/uL (0.0-0.7); Eosinophils Percent Auto 4.6 % (0.9-7.0); Hematocrit 39.2 % (36.0-48.0); Lymphocytes Absolute Auto 2.2 10^3/uL (1.2-3.8); Lymphocytes Percent Auto 39.2 % (20.5-60.0); Mean Corpuscular HGB Conc 33.2 g/dL (29.9-35.2); Mean Corpuscular Hemoglobin 29.7 pg (26.7-34.0); Mean Corpuscular Volume 89.5 fL (81.0-99.0); Monocytes Absolute Auto 0.4 10^3/uL (0.3-0.8); Monocytes Percent Auto 7.8 % (1.7-12.0); Neutrophils Absolute Auto 2.7 10^3/uL (1.4-6.5); Neutrophils Percent Auto 47.5 % (43.0-75.0); Red Blood Count 4.38 10^6/uL (4.20-5.40); Red Cell Distribution Width 12.8 % (11.0-15.0); White Blood Count 5.7 10^3/uL (4.0-11.0)
[2024-06-18 07:47] LABS: Platelet Count 156 10^3/uL (150-450)
[2024-06-18 07:55] LABS: Alanine Aminotransferase 20 U/L (14-59); Albumin Globulin Ratio 1.1; Albumin Level 3.5 g/dL (3.4-5.0); Alkaline Phosphatase 104 U/L (46-116); Aspartate Amino Transferase 19 U/L (15-37); BUN Creatinine Ratio 15.9; Bilirubin Total 0.7 mg/dL (0.2-1.0); Calcium 8.9 mg/dL (8.5-10.1); Chloride 105 mmol/L (98-107); Chol HDL Ratio 3.1; Cholesterol 231 mg/dL (<=200); Estimated GFR (African America >60 (>=60); Estimated GFR (Non-African Ame >60 (>=60); Globulin 3.2 g/dL; Glucose 86 mg/dL (74-106); HDL Cholesterol 75 mg/dL (40-60); Potassium 4.1 mmol/L (3.5-5.1); Sodium 141 mmol/L (136-145); Thyroid Stimulating Hormone 1.627 uIU/mL (0.358-3.740); Total Protein 6.7 g/dL (6.4-8.2); Triglycerides 126 mg/dL (<=150); VLDL CHOLESTEROL 25.2 mg/dL
[2024-06-18 08:00] LABS: Carbon Dioxide 29.1 mmol/L (21.0-32.0)
[2024-06-18 08:07] LABS: Estimated Average Glucose 111 mg/dL; Glycohemoglobin A1C 5.5 % (4.5-6.2)
== END 2024-06-18 06:42 | disposition home or self-care (01) ==
LOC: LAB 06:42
PROVIDERS: PCP Internal Medicine; Visit Provider Obstetrics & Gynecology
DX: Z00.00 Encounter for general adult medical examination without abnormal findings (principal)
CPT/HCPCS: 80053; 80061; 83036; 84443; 85025

== ENCOUNTER 2024-09-30 14:43 | Outpatient (OUT) | payer BC, SELFPAY ==
--- NOTE | 2024-09-30 | XR_ITS ---
The [address] [address] Patient Name: ROWAN ALARCON MRN: [id number] date: 1965 Sex: F Assigned Patient Location: [facility] Current Patient Location: RAD Accession/Order Number: [id number] Exam Date: 09/30/2024 14:55 Report Date: 09/30/2024 15:27 At the request of: DEB VALENCIA Procedure: XR chest 2V EXAM: XR chest 2V HISTORY: Dyspnea, COVID COMPARISON: 01/09/2020 TECHNIQUE: Upright PA and lateral chest x-ray FINDINGS: Relatively shallow inspiration. A very small amount of atelectasis or infiltrate is suggested at the left lung base. The lungs otherwise clear without other evidence of a focal infiltrate, effusion or pneumothorax. The heart is not enlarged and the vasculature is not distended. The osseous structures are grossly intact. XR/XR chest 2V IMPRESSION: A very small amount of atelectasis or infiltrate is suggested at the left lung base. There is no other clear evidence of an acute infiltrate or cardiac decompensation. Electronically authenticated by: LINDA ROBLES Date: 09/30/2024 15:27
== END 2024-09-30 14:44 | disposition home or self-care (01) ==
LOC: RAD 14:43
PROVIDERS: PCP Internal Medicine; Visit Provider Internal Medicine
DX: R06.00 Dyspnea, unspecified (principal); U07.1 COVID-19
CPT/HCPCS: 71046

== ENCOUNTER 2024-12-23 09:58 | Outpatient (OUT) | payer BC, SELFPAY ==
--- NOTE | 2024-12-23 10:00 | MM_ITS ---
Patient Name: ROWAN ALARCON MR#: [id number] : 1965 Exam Date: 12/23/2024 Ordering Doctor: DR Pa Brantley D.O. RADIOLOGY REPORT PROCEDURE: MM TOMOSYNTHESIS SCREENING BI COMPARISON: MM TOMOSYNTHESIS SCREENING BI, 07/12/2023. MG MAMM SCREEN 3D LOWELL CAD, 07/11/2022. MG MAMM SCREEN 3D LOWELL CAD, 12/29/2020. MG MAMM LOWELL SCRN W CAD DIG, 01/02/2014. INDICATIONS: Screening Calculator Name NCI Breast Cancer Risk Assessment Tool 5 Year Breast Cancer Risk 1.20% Lifetime Breast Cancer Risk 5.80% Personal Breast Cancer No Personal Ovarian Cancer No Treatments None Family Cancers Mother with colon cancer at age ~65. LOCATION: [facility] BREAST COMPOSITION: There are scattered areas of fibroglandular density. FINDINGS: DIAGNOSTIC CATEGORY 1--NEGATIVE. LEFT BREAST: No significant suspicious finding. RIGHT BREAST: No significant suspicious finding. RECOMMENDATIONS: ROUTINE MAMMOGRAM AND CLINICAL EVALUATION IN 12 MONTHS. PLEASE NOTE: A NORMAL MAMMOGRAM DOES NOT EXCLUDE THE POSSIBILITY OF BREAST CANCER. A CLINICALLY SUSPICIOUS PALPABLE LUMP SHOULD BE BIOPSIED. Dictated by: Eddie Meyer DO on 12/23/2024 at 15:48 Approved by: Eddie Meyer DO on 12/23/2024 at 16:03
== END 2024-12-23 09:59 | disposition home or self-care (01) ==
LOC: MAMMO 09:58
PROVIDERS: PCP Internal Medicine; Visit Provider Internal Medicine
DX: Z12.31 Encounter for screening mammogram for malignant neoplasm of breast (principal); Z80.0 Family history of malignant neoplasm of digestive organs
CPT/HCPCS: 77063; 77067

== ENCOUNTER 2025-03-31 16:14 | Outpatient (OUT) | payer BC, SELFPAY ==
--- OUTSIDE RECORDS SUMMARY | 2024-03-21 06:40 | XMS_ITS ---
Author Organization The [facility] in [place] Address [address] [place] [address] Care Team Providers Care Design Release Engineer Name Role Phone Pa Brantley DO Primary Care Provider Elizabet Sawyer Unavailable [phone] Allergies Allergen (clinical drug ingredient) Drug/Non Drug Allergy documented on EMR Reaction Allergy Type Onset Date Status Bactrim TABS Rash; Drug Allergy Acti ve Results Component Value Reference Range Notes XR Ankle LT (3 views) * (164 ) Reviewed date:03/21/2024 11:27:18 AM Interpretation: Performing Lab: Notes/Report: XR Foot LT (3 views) * Reviewed date:03/21/2024 11:33:54 AM Interpretation: Performing Lab: Notes/Report: Reason For Referral Reason please see attached Diagnosis 1 Sprain of other liga ment of left ankle, initial encounter (S93.492A) Referral Organization [facility] (PODIATRY) Referring Provider First Name Elizabet Referring Provider Last Name Peter Referring Provider Speciality Podiatry Referred Provider [facility], Physical Therap y Referred Provider Specialty Physical Med icine and Rehabilitation Referral Priority Routine REASON FOR VISIT left foot pain Medications Medication SIG (Take, Route, Fr equency, Duration) Notes Start Date End Date Status Xanax 0.5 MG 1 tablet Orally as needed Active Advil 200 MG 2 capsule with food or milk as needed Orally Three times a day Active Ibuprofen 800 MG 1 tablet with food o r milk as needed Orally every 8 hrs for 30 days 03/21/2024 Active Social History Tobacco Use: Social History Observation Description Date Details (start date - stop date) Never Smoker NA - NA Tobacco Control (Standard) Question Answer Notes Tobacco use: Nonsmoker Problems Problem Type SNOMED Code ICD Code Onset Dates Problem Status W/U Status Risk Notes Problem [id number] Primary osteoarthrit is, left ankle and foot (M19.072) Active confirmed Vital Signs Weight 165 lbs 03/21/2024 Height 67 in 03/21/2024 Temperature 97.3 degrees Fahrenheit 03/21/20 Heart Rate 87 /min 03/21/2024 BMI 25.84 kg/m2 03/21/2024 Oximetry 99 % 03/21/2024 Encounters Encounter Location Date Provider Diagnosis [facility] (PODIATRY) [address] [place] [address] [place] [address] 03/21/2024 Elizabet Green Sprain of other ligament of left ankle, initial encounter S93.492A ; Primary osteoarthritis, left ankle and foot M19.072 ; Left foot pain M79.672 and Left ankle pain M25.572 Assessments Encounter Date Diagnosis (ICD Code) Assessment Notes Treatment Notes Treatment Clinical Notes Section Notes 03/21/2024 Sprain of other ligament of left ankle, initial encounter (ICD-10 - S93.492A) The patient is a pleasant 58-year-old female who presents for evaluation of persistent left ankle pain after minor injury that occurred 1 month ago, DOI: 02/19/24. History, imaging, and physical examination are consistent with ATFL sprain.X-rays do show evidence of arthritic changes in the syndesmotic space, consistent with prior interosseous ligament rupture.I recommend:-ASO bracing-Physical therapy-Continue NSAIDs-RICEFollow -up in 6 weeks, sooner if any issues arise. No additional x-rays are necessary at that time. 03/21/2024 Primary osteoarthritis , left ankle and foot (ICD-10 - M19.072) 03/21/2024 Left foot pain (ICD-10 - M79.672) 03/21/2024 Left ankle pain (ICD-10 - M25.572) Plan Of Treatment Medication Medication Name Sig Start Date Stop Date Notes Ibuprofen 800 MG 1 tablet with food o r milk as needed Orally every 8 hrs for 30 days 03/21/2024 Treatment Notes Assessment Notes Sprain of other ligament of left ankle, initial encounter The patient is a pleasant 58-year-old female who presents for evaluation of persistent left ankle pain after minor injury that occurred 1 month ago, DOI: 02/19/24. History, imaging, and physical examination are consistent with ATFL sprain.X-rays do show evidence of arthritic changes in the syndesmotic space, consistent with prior interosseous ligament rupture.I recommend:-ASO bracing-Physical therapy-Continue RHAKDl-RRKZQyhskm-ac in 6 weeks, sooner if any issues arise. No additional x-rays are necessary at that time. Referrals Referral Date Details 03/21/2024 03/21/2024, please s ee attached, Physical Therapy [facility] Next Appt Details Follow Up: 6 Weeks, Reason: Progress Notes * Renetta GREENE EDOB: [birth year] (58 yo F)Acc No.[id number]:03/21/2024 New Patient Patient: Renetta NUNEZ Provider: Nataly Green PA-C :1965 A ge:58 Y S ex:Female Date:03/21/2024 Address:[address] [place], [place] [id number] Pcp:Pa Brantley, DO Check In:10:30 AM ESTCheck O ut:11:19 AM EST Subjective: * Chief Complaints: * L eft foot pain * HPI: G eneral: Patient here for initial evaluation of left foot and ankle pain. Patient states she rolled ankle while walking on concrete slab (rolled off the edge) DOI: 02.19.2024. Since that time she has had increased pain to her left lateral ankle/foot and pain radiates to dorsal foot and plantar heel. She states she can point her toes, but flexing foot hurts and she has decreased ROM. Denies bruising, but does report increased edema. Throbbing type pain noted and at times unable to bear weight after increased activity. Taking advil as needed. * ROS: G eneral/Constitutional: Chills d enies. F ever d enies. W eight gain?denies. W eight loss d enies. S kin: Skin Ulcers d enies. S kin lesion(s) d enies. ? C ardiovascular: Difficulty breathing on exertion d enies. L eg cramps?denies. E nazario d enies. C hest pain d enies. R espiratory: Difficulty breathing d enies. D yspnea d enies.?Cough d enies. G astrointestinal: Diarrhea d enies. N ausea d enies. V omiting?denies. M usculoskeletal: Bone/Joint Symptoms d enies. C fdc Pain d enies.?Leg cramps d enies. N eurologic: Numbness d enies. T ingling d enies . G ait abnormality d enies. ? H ematology: Anemia D enies. E asy bruising d enies. ? A ll Other Systems: Review of Systems (ROS) S ee HPI for details,All others negative except those mentioned in HPI. * Active Problem List M19.072 Primary osteoarthrit is, left ankle and foot Modified On:03/21/2024W/U Status:confirmed * Medical History: * Surgical History: a rthroscopy with repair x 4 (1979, , 2019) hysterectomy 1995oopherectomy 2015 * Hospitalization/Major Diagno stic Procedure: * Family History: M igrated Family History::Family history of Family history of colon cancer (V16.0);Family history of Family history of malignant neoplasm (V16.9);Family history of Family history of cardiac disorder (V17.49);Family history of Family history of diabetes mellitus (V18.0);. * Social History: T obacco Use: T obacco Control (Standard) T obacco use: N onsmoker * Medications: T akingAdvil(Ibuprofen) 200 MG Capsule 2 capsule with food or milk as needed Orally Three times a day Xanax(ALPRAZolam) 0.5 MG Tablet 1 tablet Orally as needed Medication List reviewed and reconciled with the patientTaking Advil(Ibuprofen) 200 MG Capsule 2 capsule with food or milk as needed Orally Three times a day Taking Xanax(ALPRAZolam) 0.5 MG Tablet 1 tablet Orally as needed Medication List reviewed and reconciled with the patient * Allergies: B actrim TABS: Rash; - Allergyno[Allergies Verified] Objective: * Vitals: W t:165lbs, Ht: 67 in, Temp:97.3F, HR:87/min, BMI:25.84Index, Pain scale:31-10, Oxygen sat %:99%, Ht-cm: 170.18 cm, Wt-k.84 kg. * Examination: P odiatry Examination: SKIN: s kin intact, n o sign of infection. MUSCULOSKELETAL: N o gross deformity. Pain on palpation ATFL and syndesmotic space. No pain on palpation medial ankle or peroneal tendonsStrength 5/5 in all planes. NEUROLOGICAL: L ight touch sensation is intact in all nerve distributions, Negative Tinel sign. VASCULAR: P alpable pedal pulses bilaterally, No swelling, No calf pain on squeeze. X -ray 3 view ankle obtained in the office today and reviewed: No evidence of acute trauma or stress fracture. Arthritis of the syndesmotic space, consistent with previous high ankle sprain. Assessment: * Assessment: 1. S prain of other ligament of left ankle, initial encounter - S93.492A (Primary) 2 . P rimary osteoarthritis, left ankle and foot - M19.072 3 . L eft foot pain - M79.672 4 .?Left ankle pain - M25.572 Plan: * Treatment: 2. L eft foot pain Start Ibuprofen Tablet, 800 MG, 1 tablet with food or milk as needed, Orally, every 8 hrs, 30 days, 90 Tablet, Refills 0. I maging: XR Ankle LT (3 views) * (164) (Performed Date - 03/21/2024) I maging: XR Foot LT (3 views) * (Performed Date - 03/21/2024) 3. L eft ankle pain I maging: XR Ankle LT (3 views) * (164) (Performed Date - 03/21/2024) * Procedure Codes: * Follow Up: 6 Weeks * * Sign off status: Completed Visit Status: C HK (Check Out) true * Provider: Nataly Green PA-C Date: 0 03/21/2024 Generated for Shiraz mercado/Rafa/eTankuritting on: 0 03/31/2025 04:17 PM EDT History and Physical Notes * Examination Category Sub-Category Detail Notes Category Not es Podiatry Examination SKIN: skin intact, no sign of infection X-ray 3 view ankle obtained in the office today and reviewed: No evidence of acute trauma or stress fracture. Arthritis of the syndesmotic space, consistent with previous high ankle sprain MUSCULOSKELETAL: No gross deformity. Pain on palpation ATFL and syndesmotic space. No pain on palpation medial ankle or peroneal tendonsStrength 5/5 in all planes NEUROLOGICAL: Light touch sensatio n is intact in all nerve distributions, Negative Tinel sign VASCULAR: Palpable pedal pulse s bilaterally, No swelling, No calf pain on squeeze Consultation Request Notes Referral Date Referring Provider Referred Provider Not 03/21/2024 Elizabet Green [facility], Physical Therapy pl ease see attached
--- OUTSIDE RECORDS SUMMARY | 2024-03-28 06:22 | XMS_ITS ---
Author Organization The [facility] in [place] Address [address] [place] [address] Care Team Providers Care Superintendent Drilling Name Role Phone Pa Brantley DO Primary Care Provider Elizabet Sawyer [phone] Medications Medication SIG (Take, Route, Fr equency, Duration) Notes Start Date End Date Status Meloxicam 15 MG 1 tablet Orally Once a day for 30 day(s) 03/28/2024 Active Encounters Encounter Location Date Provider Diagnosis [facility] (PODIATRY) [address] [place] [address] [place] [address] 03/28/2024 Elizabet Green Plan Of Treatment Medication Medication Name Sig Start Date Stop Date Notes Meloxicam 15 MG 1 tablet Orally Once a day for 30 day(s) 0 03/28/2024 Progress Notes * Renetta GREENE EDOB: [birth year] (58 yo F)Acc No.[id number]:03/28/2024 Patient: Erik Renetta MOMIN :1965 A ge:58 Y S ex:Female Address:[address] [place] [address] , [place], [address] * Refills Start Meloxicam Tablet, 15 MG, Orally, 30, 1 tablet, Once a day, 30 day(s), Refills=3 * true * Date: Generated for Printi ng/Faxing/eTransmitting on: 0 03/31/2025 04:17 PM EDT
--- OUTSIDE RECORDS SUMMARY | 2024-05-01 05:00 | XMS_ITS ---
Author Organization The [facility] in [place] Address [address] [place] [address] Care Team Providers Care Spray Mixer Name Role Phone Pa Brantley DO Primary Care Provider Armen Rocha [phone] Allergies Allergen (clinical drug ingredient) Drug/Non Drug Allergy documented on EMR Reaction Allergy Type Onset Date Status Bactrim TABS Rash; Drug Allergy Acti ve REASON FOR VISIT 6 week f/u Medications Medication SIG (Take, Route, Fr equency, Duration) Notes Start Date End Date Status Ibuprofen 800 MG TAKE 1 TABLET BY ANN MARIE TH EVERY 8 HOURS WITH FOOD OR MILK NEEDED for 30 Not-Taking Advil 200 MG 2 capsule with food or milk as needed Orally Three times a day Active Xanax 0.5 MG 1 tablet Orally as needed Active Meloxicam 15 MG 1 tablet Orally Once a day for 30 day(s) 03/28/2024 Not-Taking Social History Tobacco Use: Social History Observation Description Date Details (start date - stop date) Never Smoker NA - NA Tobacco Control (Standard) Question Answer Notes Tobacco use: Nonsmoker Vital Signs Weight 165 lbs 05/01/2024 Height 67 in 05/01/2024 Heart Rate 77 /min 05/01/2024 BMI 25.84 kg/m2 05/01/2024 Oximetry 99 % 05/01/2024 Encounters Encounter Location Date Provider Diagnosis [facility] (PODIATRY) [address] [place] [address] [place] [address] 05/01/2024 Armen Mann Sprain of other ligament of left ankle, initial encounter S93.492A Assessments Encounter Date Diagnosis (ICD Code) Assessment Notes Treatment Notes Treatment Clinical Notes Section Notes 05/01/2024 Sprain of other ligament of left ankle, initial encounter (ICD-10 - S93.492A) Patient is doing great and has no complaints. Denies subjective symptoms of instability. No longer has pain. And is not requiring lace up ankle brace. I have no restrictions for her she may follow-up as needed Plan Of Treatment Treatment Notes Assessment Notes Sprain of other ligament of left ankle, initial encounter Patient is doing great and has no complaints. Denies subjective symptoms of instability. No longer has pain. And is not requiring lace up ankle brace. I have no restrictions for her she may follow-up as needed Progress Notes * Renetta GREENE EDOB: [birth year] (59 yo F)Acc No.[id number]:05/01/2024 Follow Up Patient: Renetta NUNEZ Provider: Linette Mann DPM MS :1965 A ge:59 Y S ex:Female Date:05/01/2024 Address:[address] [place], [place] [id number] Pcp:Pa Brantley, DO Check In:09:00 AM ESTCheck O ut:09:27 AM EST Subjective: * Chief Complaints: * 6 week f/u * HPI: G eneral: Patient here for initial evaluation of left foot and ankle pain. Patient states she rolled ankle while walking on concrete slab (rolled off the edge) DOI: 02.19.2024. Pt reports great improvement in left ankle pain, PT and ASO brace helped. Pt has no complaints. No longer needs to take NSAIDS. * Active Problem List M19.072 Primary osteoarthrit is, left ankle and foot Modified On:03/21/2024W/U Status:confirmed * Medical History: * Surgical History: a rthroscopy with repair x 4 (1979, 1989's, 2019) hysterectomy 1994oopherectomy 2015 * Hospitalization/Major Diagno stic Procedure: N o Hospitalization History. * Family History: M igrated Family History::Family [...] MG Tablet 1 tablet Orally as needed Taking Advil(Ibuprofen) 200 MG Capsule 2 capsule with food or milk as needed Orally Three times a day Taking Xanax(ALPRAZolam) 0.5 MG Tablet 1 tablet Orally as needed Not-Taking/PRNIbuprofen 800 MG Tablet TAKE 1 TABLET BY MOUTH EVERY 8 HOURS WITH FOOD OR MILK NEEDED Meloxicam 15 MG Tablet 1 tablet Orally Once a day Medication List reviewed and reconciled with the patientNot-Taking/PRN Ibuprofen 800 MG Tablet TAKE 1 TABLET BY MOUTH EVERY 8 HOURS WITH FOOD OR MILK NEEDED Not-Taking/PRN Meloxicam 15 MG Tablet 1 tablet Orally Once a day Medication List reviewed and reconciled with the patient * Allergies: B actrim TABS: Rash; - Allergyno[Allergies Verified] Objective: * Vitals: W t:165lbs, Ht: 67 in, HR:77/min, BMI:25.84Index, Pain scale:01-10, Oxygen sat %:99%, Ht-cm: 170.18 cm, Wt-k.84 kg. * Examination: P odiatry Examination: SKIN: s kin intact, n o sign of infection. MUSCULOSKELETAL: N o pain to palpation, N o gross deformity, S trength equal & symmetric Negative anterior drawer. NEUROLOGICAL: l ight touch sensation intact, n egative tinel's sign. VASCULAR: P edal pulses palpable, C apillary refill is brisk to toe, D igital hair intact. Assessment: * Assessment: 1. S prain of other ligament of left ankle, initial encounter - S93.492A (Primary) Plan: * Treatment: * Procedure Codes: * * Sign off status: Completed Visit Status: C HK (Check Out) true * Provider: Linette Mnan DPM, MS Date: 0 05/01/2024 Generated for Shiraz mercado/Rafa/eTransmitting on: 0 03/31/2025 04:17 PM EDT History and Physical Notes * Examination Category Sub-Category Detail Notes Category Not es Podiatry Examination SKIN: skin intact, no sign of infection MUSCULOSKELETAL: No pain to palpation , No gross deformity, Strength equal & symmetric Negative anterior drawer NEUROLOGICAL: light touch sensatio n intact, negative tinel's sign VASCULAR: Pedal pulses palpabl e, Capillary refill is brisk to toe, Digital hair intact
--- NOTE | 2025-03-31 | XR_ITS ---
The [address] [address] Patient Name: ROWAN ALARCON MRN: [id number] date: 1965 Sex: F Assigned Patient Location: [facility] Current Patient Location: [facility] Accession/Order Number: [id number] Exam Date: 03/31/2025 16:56 Report Date: 03/31/2025 16:58 At the request of: DEB VALENCIA DO Procedure: XR ribs RT min 3V w CXR1V XR ribs RT min 3V w CXR1V 03/31/2025 4:27 PM SIGNS AND SYMPTOMS: ^Right side chest pain after fall PROTOCOL: Frontal radiograph the chest with oblique radiographs of the right ribs COMPARISON: None FINDINGS: The trachea is midline. The heart and mediastinal structures are within normal limits. The lung parenchyma is clear. The bony thorax is intact. There is a levoconvex curvature of the upper thoracic spine. XR/XR ribs RT min 3V w CXR1V IMPRESSION: No acute cardiopulmonary pathology. No acute displaced rib fracture. Impression dictated by: Jett Weber M.D. 03/31/2025 4:58 PM Dictation Location: [facility]FA[facility]OSPITALPrior Knowledge Electronically authenticated by: [id number] Y Date: 03/31/2025 16:58
--- OUTSIDE RECORDS SUMMARY | 2025-03-31 16:17 | XMS_ITS | Clinical Summary ---
Author Organization [facility] Address [address] [place] [address] Care Team Providers Care Suction Drum Drier Operator Name Role Phone Pa Brantley DO Primary Care Provider [phone] Allergies Active Allergy Reactions Criticality Noted Date Comments Sulfamethoxazole-Trimethoprim Rash Low 2022 Medications ALPRAZolam (Xanax) 0.5 MG tabletIndicatio ns:Postmenopaus al state Take 1 tablet (0.5 mg) by mouth as needed at bedtime for anxiety for up to 10 days 10 tablet 07/08/2024 Active Family History Medical History Relation Name Comments Stroke Father Father Cancer Mother Mother Diabetes Mother Mother Relation Name Status Comments Father Father Mother Mother Social History Tobacco Use Types Packs/Day Years Used Date Smoking Tobacco: Never Smokeless Tobacco: Never Tobacco Cessation:Counseling Given: Not Answered Alcohol Use Standard Drinks/Week Comments Yes 0 (1 standard drink = 0.6 oz pure alcohol) 6 or more drinks /weekly ; 3 or 4 drinks on a typical day Comments Unknown Sex and Gender Information Value Date Recorded Sex Assigned at Not on file Legal Sex Female 8:05 PM EDT Gender Identity Not on file Sexual Orientation Not on file Last Filed Vital Signs Vital Sign Reading Time Taken Comments Blood Pressure 112/72 07/08/2024 3:35 PM EDT Pulse - - Temperature - - Respiratory Rate - - Oxygen Saturation - - Inhaled Oxygen Concentration - - Weight 73.9 kg (163 lb) 07/08/2024 3:35 PM EDT Height 170.2 cm (5' 7 ) 07/08/2024 3:35 PM EDT Body Mass Index 25.53 07/08/2024 3:35 PM EDT Plan of Treatment Health Maintenance Due Date Last Done Comments CT Colonography 1963 FIT-DNA 1963 FIT 1963 FOBT 1965 Sigmoidoscopy 1965 Mammogram 07/12/2024 07/12/2023 Colonoscopy 03/11/2025 03/11/2015 Colorectal Cancer Screening 03/11/2025 Influenza Vaccine (Season Ended) 2025 Cervical Cancer Screening 07/12/2028 HPV/Cotest 07/12/2028 Pap Smear 07/12/2028 07/12/2023 Procedures Procedure Name Priority Date/Time Associated Diagnosis Comments MM TOMOSYNTHESIS SCREENING BI 07/12/2023 10:42 AM EDT PAP SMEAR Routine 07/12/2023 12:00 AM EDT from Last 3 Months or Most Recently Relevant to Health Maintenance Results * MM TOMOSYNTHESIS SCREENING BI (07/12/2023 10:42 AM EDT) Anatomical Region Laterality Modality Other 07/12/2023 10:4 2 AM EDT Narrative 07/12/2023 10:42 [place] [address] Mammography Report Signed Patient: RENETTA GREENE MR#: [id number] : 1965 Acct:[id number] Age/Sex: 58 / F ADM Date: 07/12/23 Loc: MAMMO Attending Dr: Raffaele Carter D.O. Ordering Physician: Raffaele Carter D.O. Results: Date of Service: 07/12/23 Follow Up: Procedure(s): MM tomosynthesis screening BI Accession Number(s): [id number] cc: Pa Brantley D.O.; Raffaele Carter D.O. Patient: RENETTA GREENE Exam Date: 07/12/2023 : 1965 Gender:F Ordering : DR Raffaele Carter . Admission #: [id number] Family : DR Pa Brantley D.O. Order #: [id number] CLICK HERE TO VIEW EXAM RADIOLOGY REPORT PROCEDURE: MM TOMOSYNTHESIS SCREENING BI COMPARISON: MG MAMM SCREEN 3D LOWELL CAD, 12/29/2020. MG MAMM SCREEN 3D LOWELL CAD, 07/11/2022. INDICATIONS: Screening Calculator Name NCI Breast Cancer Risk Assessment Tool 5 Year Breast Cancer Risk 1.20% Lifetime Breast Cancer Risk 6.00% Personal Breast Cancer No Personal Ovarian Cancer No Treatments None Family Cancers Mother with colon cancer at age 65. LOCATION: [facility] BREAST COMPOSITION: Heterogeneously dense,which may obscure small masses. FINDINGS: DIAGNOSTIC CATEGORY 2--BENIGN FINDING. NO CHANGE FROM COMPARISON. Scattered benign-appearing nodules are present. Scattered benign-appearing calcifications are present. Scattered benign-appearing lymph nodes are present. RIGHT BREAST: No significant suspicious finding. LEFT BREAST: No significant suspicious finding. RECOMMENDATIONS: ROUTINE MAMMOGRAM AND CLINICAL EVALUATION IN 12 MONTHS. PLEASE NOTE: A NORMAL MAMMOGRAM DOES NOT EXCLUDE THE POSSIBILITY OF BREAST CANCER. A CLINICALLY SUSPICIOUS PALPABLE LUMP SHOULD BE BIOPSIED. Dictated by: Pavan Harry MD on 07/12/2023 at 10:39 Approved by: Pavan Harry MD on 07/12/2023 at 10:41 Dictated By: Pavan Harry M.D. Signed By: 07/12/231041 DD/ 41 TD/TT: Enterprise Application Architect: Procedure Note Radiology, Radiologist, - 07/12/2023 [place] [address] Mammography Report Signed Patient: RENETTA GREENE EMR#: [id number] : 1965Acct:[id number] Age/Sex: 58 / FADM Date: 07/12/23 Loc: MAMMO Attending Dr: Raffaele Carter D.O. Ordering Physician: Raffaele Carter D.O.Results: Date of Service: 07/12/23Follow Up: Procedure(s): MM tomosynthesis screening BI Accession Number(s): [id number] cc: Pa Brantley D.O.; Raffaele Carter D.O. Patient: RENETTA GREENE Exam Date: 07/12/2023 : 1965 Gender:F Ordering : DR Raffaele Carter . Admission #: [id number] Family : DR Pa Brantley D.O. Order #: [id number] CLICK HERE TO VIEW EXAM RADIOLOGY REPORT PROCEDURE: MM TOMOSYNTHESIS SCREENING BI COMPARISON: MG MAMM SCREEN 3D LOWELL CAD, 12/29/2020. MG MAMM SCREEN 3DBIL CAD, 07/11/2022. INDICATIONS: Screening Calculator Name NCI Breast Cancer Risk Assessment Tool 5 Year Breast Cancer Risk 1.20% Lifetime Breast Cancer Risk 6.00% Personal Breast Cancer No Personal Ovarian Cancer No Treatments None Family Cancers Mother with colon cancer at age 65. LOCATION: [facility] BREAST COMPOSITION: Heterogeneously dense,which may obscure smallmasses. FINDINGS: DIAGNOSTIC CATEGORY 2--BENIGN FINDING. NO CHANGE FROM COMPARISON. Scattered benign-appearing nodules are present. Scatteredbenign-appearing calcifications are present. Scattered benign-appearing lymph nodes are present. RIGHT BREAST: No significant suspicious finding. LEFT BREAST: No significant suspicious finding. RECOMMENDATIONS: ROUTINE MAMMOGRAM AND CLINICAL EVALUATION IN 12 MONTHS. PLEASE NOTE: A NORMAL MAMMOGRAM DOES NOT EXCLUDE THE POSSIBILITY OFBREAST CANCER. A CLINICALLY SUSPICIOUS PALPABLE LUMP SHOULD BE BIOPSIED. Dictated by: Pavan Harry MD on 07/12/2023 at 10:39 Approved by: Pavan Harry MD on 07/12/2023 at 10:41 Dictated By: Pavan Harry M.D. Signed By:07/12/23 1042 DD/ 41 TD/TT: Enterprise Application Architect: us Raffaele Emma DO [facility] Final Result * Pap Smear (07/12/2023 12:00 AM EDT) Swab Cervical swab / Unknown us Raffaele Emma DO LAB CYTOLOGY ORDERABLES Final Re sult EXTERNAL LAB from Last 3 Months or Most Recently Relevant to Health Maintenance Insurance BCBS Member Subscriber Plan / Payer (Ef fective 2022-Present) Name:Renetta Greene Member ID:[id number] Relation to Subscriber:Self Name:Renetta Greene Subscriber ID:[id number] Payer ID:Not on file Type:Not on file Address: [facility] [address] [place] [address] Care Teams Suction Drum Drier Operator Relationship Specialty Start Date End Date Pa Brantley DO PCP - General Internal Medicine 06/22/23
--- OUTSIDE RECORDS SUMMARY | 2025-03-31 16:17 | XMS_ITS | Encounter Summary ---
Author Organization [facility] Address [address] [place] [address] Care Team Providers Care Chief Internal Auditor Name Role Phone Pa Brantley DO Primary Care Provider [phone] Encounter Details Date Type Department Care Team (Late st Contact Info) Description 07/12/2023 Clinisync Result Encounter [facility] External Department Unsolicited Raffaele Carter DO [address] [facility] [place] [address] Social History Tobacco Use Types Packs/Day Years Used Date Smoking Tobacco: Never Alcohol Use Standard Drinks/Week Comments Yes 0 (1 standard drink = 0.6 oz pure alcohol) 6 or more drinks /weekly ; 3 or 4 drinks on a typical day Comments Unknown Sex and Gender Information Value Date Recorded Sex Assigned at Not on file Legal Sex Female 8:05 PM EDT Gender Identity Not on file Sexual Orientation Not on file COVID-19 Exposure Response Date Recorded In the last 10 days, have yo u been in contact with someone who was confirmed or suspected to have Coronavirus/COVID-19? No / Unsure 06/21/2023 11:57 AM EDT documented as of this encounter Plan of Treatment Not on file documented as of this encounter Procedures Procedure Name Priority Date/Time Associated Diagnosis Comments MM TOMOSYNTHESIS SCREENING BI 07/12/2023 10:42 AM EDT documented in this encounter Results * MM TOMOSYNTHESIS SCREENING BI (07/12/2023 10:42 AM EDT) Anatomical Region Laterality Modality Other 07/12/2023 10:4 2 AM EDT Narrative 07/12/2023 10:42 AM EDT [facility] [place] [id number] Mammography Report Signed Patient: RENETTA GREENE MR#: [id number] : 1965 Acct:[id number] Age/Sex: 58 / F ADM Date: 07/12/23 Loc: MAMMO Attending Dr: Raffaele Carter D.O. Ordering Physician: Raffaele Carter D.O. Results: Date of Service: 07/12/23 Follow Up: Procedure(s): MM tomosynthesis screening BI Accession Number(s): [id number] cc: Pa Brantley D.O.; Raffaele Carter D.O. Patient: RENETTA GREENE Exam Date: 07/12/2023 : 1965 Gender:F Ordering : DR Raffaele Carter . Admission #: [id number] Family : DR Pa Brantley D.O. Order #: [id number] CLICK HERE TO VIEW EXAM RADIOLOGY REPORT PROCEDURE: MM TOMOSYNTHESIS SCREENING BI COMPARISON: MG MAMM SCREEN 3D LOWELL CAD, 12/29/2020. MG MAMM SCREEN 3D LOEWLL CAD, 07/11/2022. INDICATIONS: Screening Calculator Name NCI Breast Cancer Risk Assessment Tool 5 Year Breast Cancer Risk 1.20% Lifetime Breast Cancer Risk 6.00% Personal Breast Cancer No Personal Ovarian Cancer No Treatments None Family Cancers Mother with colon cancer at age 65. LOCATION: The [place] BREAST COMPOSITION: Heterogeneously dense,which may obscure small [...] M.D. Signed By: 07/12/231041 DD/ 41 TD/TT: Lacing Operator: Procedure Note Radiology, Radiologist, MD - 07/12/2023 [facility] [place] [id number] Mammography Report Signed Patient: RENETTA GREENE EMR#: [id number] : 1965Acct:[id number] Age/Sex: 58 / FADM Date: 07/12/23 Loc: MAMMO Attending Dr: Raffaele Carter D.O. Ordering Physician: Raffaele Carter D.O.Results: Date of Service: 07/12/23Follow Up: Procedure(s): MM tomosynthesis screening BI Accession Number(s): [id number] cc: Pa Brantley D.O.; Raffaele Carter D.O. Patient: RENETTA GREENE Exam Date: 07/12/2023 : 1965 Gender:F Ordering : DR Raffaele Carter . Admission #: [id number] Family : DR Pa Brantley D.O. Order #: [id number] CLICK HERE TO VIEW EXAM RADIOLOGY REPORT [...] colon cancer at age 63. LOCATION: [facility] [place] BREAST COMPOSITION: Heterogeneously dense,which may obscure smallmasses. [...] Pavan Harry M.D. Signed By:07/12/23 1042 DD/ 104 TD/TT: Lacing Operator: us Raffaele Emma DO [facility] Final Result documented in this encounter Visit Diagnoses Not on filedocumented in this encounter Care Teams Chief Internal Auditor Relationship Specialty Start Date End Date Pa Brantley DO PCP - General Internal Medicine 06/22/23 documented as of this encounter
--- OUTSIDE RECORDS SUMMARY | 2025-03-31 16:17 | XMS_ITS | Encounter Summary ---
Author Organization [facility] Address [address] [facility] [place] [address] Care Team Providers Care Varnish Maker Helper Name Role Phone Pa Brantley DO Primary Care Provider [phone] Encounter Details Date Type Department Care Team (Late st Contact Info) Description 06/18/2024 Abstract [facility] OB [address] [place] [address] Raffaele Carter DO [address] [facility] [address] Zac [place], [facility] Social History Tobacco Use Types Packs/Day Years [...] on file Sexual Orientation Not on file documented as of this encounter Plan of Treatment Not on file documented as of this encounter Visit Diagnoses Not on filedocumented in this encounter Care Teams Varnish Maker Helper Relationship Specialty Start Date End Date Pa Brantley DO PCP - General Internal Medicine 06/22/23 documented as of this encounter
--- OUTSIDE RECORDS SUMMARY | 2025-03-31 16:18 | XMS_ITS | Patient Health Record ---
Author Organization [facility] Address [address] [place] [address] Care Team Providers Care Arresting Gear Operator Name Role Phone Pa Brantley DO Primary Care Provider Armen Rocha [phone] Allergies Allergen (clinical drug ingredient) Drug/Non Drug Allergy documented on EMR Reaction Allergy Type Onset Date Status Bactrim TABS Rash; Drug Allergy Acti ve Reason For Referral No Information Medications Medication SIG (Take, Route, Fr equency, Duration) Notes Start Date End Date Status Ibuprofen 800 MG TAKE 1 TABLET BY ANN MARIE TH EVERY 8 HOURS WITH FOOD OR MILK NEEDED for 30 Active Advil 200 MG 2 capsule with [...] Problem Status W/U Status Risk Notes Problem [id number] Primary osteoarthrit is, left ankle and foot (M19.072) Active confirmed Vital Signs Heart Rate 77 /min 05/01/2024 Oximetry 99 % 05/01/2024 Height 67 in 05/01/2024 Weight 165 lbs 05/01/2024 BMI 25.84 kg/m2 05/01/2024 Encounters Encounter Location Date Provider Diagnosis [facility] (PODIATRY) [address] [place], [place] [address] [address] 05/01/2024 Armen Mann Sprain of other ligament [...] may follow-up as needed Plan Of Treatment No Information Insurance Providers Payer Name Payer Address Payer Phone Subscriber Number Group Number Insured Name Patient Relationship to Insured Coverage Start Date Coverage End Date BCBS OUT OF STATE [address] [place] [address] [id number] Renetta Greene Self - patient is the insured Medical (General) History Medical History History ICD Code left foot/ankle pain Surgical History Surgery Date(Month/Year) arthroscopy with repair x 4 (1979, 1989' s, 2019) hysterectomy 1994 oopherectomy 2016
--- OUTSIDE RECORDS SUMMARY | 2025-03-31 16:18 | XMS_ITS | Clinical Summary ---
Author Organization [facility] Address [address] [place] [address] Care Team Providers Care Finance Professor Name Role Phone Pa Brantley DO Primary Care Provider [phone] Allergies Active Allergy Reactions Criticality Noted Date Comments Sulfamethoxazole-Trimethop rim Hives,Intolerance,Itching,R jamil 01/19/2021 Medications ALPRAZolam (XANAX) 0.25 mg tablet Take 0.25 mg by mouth three times daily as needed (takes half pill). Active Active Problems Problem Noted Date Diagnosed Date PONV (postoperative nausea and vomiting) 021 Acute medial meniscus tear of left knee 01/20/20 21 Dizziness 02/02/2018 History of migraine 02/02/2018 Resolved Problems Problem Noted Date Diagnosed Date Resolved Date Nausea 02/02/2018 01/27/2021 Immunizations Immunization Administration Dates Next Due COVID-19 original vaccine, f ull dose, monovalent (MODERNA) 11/18/2020,10/21/2020 Family History Medical History Relation Comments Heart disease Father Cancer Mother Relation Status Comments Father Alive Mother Social History Tobacco Use Types Packs/Day Years Used Date Smoking Tobacco: Never Smokeless Tobacco: Never Alcohol Use Standard Drinks/Week Comments Yes 0 (1 standard drink = 0.6 oz pur e alcohol) Area Deprivation Index Answer Date Rufino rded National Score (1-100), lower number is lower ri sk Not on file 09/15/2020 State Score (1-10), lower number is lower risk N ot on file 09/15/2020 Data from: https://www.neighborhoodatlas.[facility]/. Last address used for calculation Not on file 09/15/2020 Comments No Sex and Gender Information Value Date Recorded Sex Assigned at Female 01/18/2021 8:31 AM EDT Legal Sex Female 11:52 AM EDT Gender Identity Female 01/18/2021 8:31 AM EDT Sexual Orientation Not on file Last Filed Vital Signs Vital Sign Reading Time Taken Comments Blood Pressure 113/59 01/27/2021 2:30 PM EDT Pulse 73 01/27/2021 2:30 PM EDT Temperature 37.2 C (98.9 F) 01/27/2021 11:30 AM EDT Respiratory Rate 16 01/27/2021 2:30 PM EDT Oxygen Saturation 100% 01/27/2021 2:3 0 PM EDT Inhaled Oxygen Concentration - - Weight 72.6 kg (160 lb) 01/22/2021 7:51 AM EDT patient reported Height 170.2 cm (5' 7 ) 01/22/2021 7:51 AM EDT patient reported Body Mass Index 25.06 01/22/2021 7:51 AM EDT Plan of Treatment Health Maintenance Due Date Last Done Comments Anxiety Screening 1981 Depression Screening 1981 HIV Screening 1981 Hepatitis C Screening 1981 DTaP,Tdap,Td Vaccine (1 - Tdap) 1982 Cervical Cancer Screening [address] Colonography 2008 Cologuard (FIT-DNA) 2008 Colonoscopy 2008 Colorectal Cancer Screening 2008 Diabetes Screening 2008 Fecal Occult Blood 2008 Lipid Screening 2008 Sigmoidoscopy 2008 Pneumococcal Vaccine: 50+ (1 of 1 - PCV) 2013 Shingrix Vaccine (1 of 2) 2013 Covid-19 Vaccine (3 - season) 06/09/202407/2021, 10/21/2020 Influenza Vaccine (Season Ended) 2025 07/20/2022, 07/09/2021, 08/03/2018 RSV Vaccine (1 - 1-dose 75+ series) 2038 Insurance [address] [place] [address] [facility] [employer] PPO Care Teams Finance Professor Relationship Specialty Start Date End Date Pa Brantley DO [address] [place] [address] PCP - General Internal Medicine 01/27/21
== END 2025-03-31 16:15 | disposition home or self-care (01) ==
LOC: RAD 16:15
PROVIDERS: PCP Internal Medicine; Visit Provider Internal Medicine
DX: R07.89 Other chest pain (principal)
CPT/HCPCS: 71101

== ENCOUNTER 2025-04-09 12:11 | Outpatient (OUT) | payer BC, SELFPAY ==
--- NOTE | 2025-04-09 15:14 | XR_ITS ---
[facility] [place] [id number] Patient Name: ROWAN ALARCON MRN: [id number] date: 1965 Sex: F Assigned Patient Location: [facility] Current Patient Location: [facility] Accession/Order Number: [id number] Exam Date: 04/09/2025 15:20 Report Date: 04/09/2025 15:22 At the request of: DEB VALENCIA DO Procedure: XR ribs RT min 3V w CXR1V PA CHEST WITH 4 VIEWS RIGHT RIBS: CLINICAL HISTORY: Right Sided Chest Wall Pain COMPARISON: Chest 03/31/2025 FINDINGS: Single view of the chest demonstrates the heart is normal in size. Lungs are clear. No free air. No displaced right-sided rib fractures seen. XR/XR ribs RT min 3V w CXR1V IMPRESSION: No acute findings. Impression dictated by: Eddie Meyer Jr., D.O. 04/09/2025 3:22 PM [facility]ictation [facility] Electron[facility] authenticated by: [id number] Date: 04/09/2025 15:22
== END 2025-04-09 12:12 | disposition home or self-care (01) ==
LOC: RAD 12:12
PROVIDERS: PCP Internal Medicine; Visit Provider Internal Medicine
DX: R07.89 Other chest pain (principal)
CPT/HCPCS: 71101